=== PATIENT | male | born 1945 | race Caucasian/White ===

== ENCOUNTER 2017-08-03 15:05 | Observation (INO) | payer OTHER ==
[2017-08-03 15:12] VITALS: BMI 23.7
[2017-08-03 16:08] LABS: BASO # 0.02 K/mm3 (0.0-2.0); BASO % 0.3 % (0.0-3.0); EOS # 0.1 (0.0-0.7); EOS % 1.2 % (1.5-5.0); GRAN # 4.32 (1.4-6.5); GRAN % 63.8 % (50.0-68.0); LYMPH # 1.7 (1.2-3.4); LYMPH % 25.1 % (22.0-35.0); MEAN CELL VOLUME 86.4 fl (80.0-105.0); MEAN CORPUSCULAR HEMOGLOBIN 27.7 pg (25.0-35.0); MEAN CORPUSCULAR HGB CONC 32.1 g/dl (31.0-37.0); MONO # 0.7 (0.1-0.6); MONO % 9.6 % (1.0-6.0); RED CELL DISTRIBUTION WIDTH 14.2 % (11.5-14.5); WHITE BLOOD COUNT 6.8 10^3/ul (4.5-11.0)
[2017-08-03] MEDS ORDERED: Oxycodone/Acetaminophen 5/325 mg Tab PO STA (16:09)
[2017-08-03 16:11] LABS: ALB/GLOB RATIO 1.2 (1.1-1.8); ALKALINE PHOSPHATASE 44 U/L (38-126); ALT/SGPT 31 U/L (7-56); AST/SGOT 37 U/L (17-59); BILIRUBIN,TOTAL 0.5 mg/dL (0.2-1.3); BLOOD UREA NITROGEN 23 mg/dL (7-21); CALCIUM 9.1 mg/dL (8.4-10.5); CARBON DIOXIDE 23 mmol/L (21-33); CHLORIDE 105 mmol/L (98-107); GFR AFRICAN-AMERICAN > 60; GLUCOSE,RANDOM 121 mg/dL (70-110); LIPASE 273 U/L (23-300); POTASSIUM 4.5 mmol/L (3.6-5.0); SODIUM 140 mmol/L (132-148); TOTAL PROTEIN 7.9 g/dL (5.8-8.3)
[2017-08-03 16:23] LABS: TROPONIN I < 0.01 ng/mL
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
--- NOTE | 2017-08-03 19:43 | RAD ---
HISTORY: chest pain COMPARISON: None available. TECHNIQUE: Chest PA and lateral FINDINGS: LUNGS: No focal consolidation. Please note that chest x-ray has limited sensitivity for the detection of pulmonary masses. PLEURA: No significant pleural effusion identified. No definite pneumothorax . CARDIOVASCULAR: Median sternotomy wires with evidence of CABG. Heart size appears within normal limits. OSSEOUS STRUCTURES: No acute osseous abnormality identified. VISUALIZED UPPER ABDOMEN: Unremarkable. OTHER FINDINGS: None. IMPRESSION: No focal consolidation, significant pleural effusion, or definite pneumothorax identified.
[2017-08-04] MEDS ORDERED: Magnesium Hydroxide Susp 30 ml UD PO STA (02:00)
[2017-08-04 08:46] VITALS: BP 94/60; PULSE 82; RESP 20; TEMP 98.3; O2SAT 99
[2017-08-04] MEDS ORDERED: Pantoprazole 40 mg EC Tab PO SCH (10:00)
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
--- NOTE | 2017-08-04 22:11 | CARD ---
APPROVED REPORT EKG Measurement Heart [id number] <Conclusion> Normal sinus rhythm Normal ECG
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
== END 2017-08-04 14:55 | disposition home or self-care (01) ==
LOC: ED 15:05 → ERH 17:17 → MERGE 17:17 → 3RNO 18:32
PROVIDERS: ADMIT Internal Medicine; ATTEND Internal Medicine
DX: R07.9 Chest pain, unspecified (principal); Y04.0XXA Assault by unarmed brawl or fight, initial encounter; I25.10 Atherosclerotic heart disease of native coronary artery without angina pectoris; E78.00 Pure hypercholesterolemia, unspecified; I48.0 Paroxysmal atrial fibrillation; I48.2 Chronic atrial fibrillation; I50.9 Heart failure, unspecified; I11.0 Hypertensive heart disease with heart failure; E11.42 Type 2 diabetes mellitus with diabetic polyneuropathy; Z79.01 Long term (current) use of anticoagulants; Z79.82 Long term (current) use of aspirin; Z79.84 Long term (current) use of oral hypoglycemic drugs; Z95.1 Presence of aortocoronary bypass graft; Z86.718 Personal history of other venous thrombosis and embolism; Z87.891 Personal history of nicotine dependence
CPT/HCPCS: 36415; 71020; 80053; 82948; 83690; 84484; 85025; 93005; 99285; G0378

== ENCOUNTER 2018-02-11 11:36 | Inpatient (IN) | payer MEDICAID, OTHER ==
[2018-02-11] MEDS ORDERED: Sodium Chloride 0.9% 1,000 ML IV SCH (11:45)
--- NOTE | 2018-02-11 11:45 | ED PDOC ---
Arrival/HPI - General Time Seen by Provider: 02/11/18 11:38 Historian: Patient - History of Present Illness Narrative History of Present Illness (Text): 02/11/18 11:40 72 year old male, whose history includes CABG 2 years ago, paroxysmal afib, on eliquis, diabetes, and hypertension, presents to the Emergency department due unsteady gait and dizziness at approximately 09:30 this morning. As per EMS, patient seemed to have a left sided facial droop and left sided weakness; patient was also reportedly in rapid atrial fibrillation. As per friend, patient 's speech today is different than yesterday. Patient reports sore throat and back pain. Patient denies any fever, chills, chest pain, shortness of breath, nausea, vomiting, diarrhea, urinary symptoms, neck pain, headache, trauma/ injury or any other complaints. PMD: Dr. Milligan 02/11/18 13:01 Time/Duration: 1-3 hours Symptom Onset: Sudden Symptom Course: Unchanged Activities at Onset: Light Context: Walking Past Medical History - Provider Review Nursing Documentation Reviewed: Yes - Past History Past History: No Previous - Past Medical History Past Medical History: No Previous - Cardiac Hx Cardiac Disorders: Yes Hx Coronary Artery Disease: Yes Hx LA: Yes Hx Hyperlipemia: Yes Hx Hypertension: Yes Other/Comment: open heart surgery - Pulmonary Hx Respiratory Disorders: No - Neurological Hx Neurological Disorder: No - HEENT Hx HEENT Disorder: No - Renal Hx Renal Disorder: No - Endocrine/Metabolic Hx Endocrine Disorders: Yes Other/Comment: diabetic - Hematological/Oncological Hx Blood Disorders: No - Integumentary Hx Dermatological Disorder: No - Musculoskeletal/Rheumatological Hx Musculoskeletal Disorders: No - Gastrointestinal Hx Gastrointestinal Disorders: No - Genitourinary/Gynecological Hx Genitourinary Disorders: No - Psychiatric Hx Psychophysiologic Disorder: No Hx Substance Use: No - Surgical History Hx Open Heart Surgery: Yes - Anesthesia Hx Anesthesia: Yes Family/Social History - Physician Review Nursing Documentation Reviewed: Yes Family/Social History: Unknown Family HX Smoking Status: Never Smoked Hx Alcohol Use: No Hx Substance Use: No Allergies/Home Meds Allergies/Adverse Reactions: Allergies No Known Allergies Allergy (Verified 08/03/17 15:11) Home Medications: Home Meds Medication Instructions Recorded Confirmed Apixaban [Eliquis] 5 mg PO BID 08/03/17 08/03/17 Gabapentin [Neurontin] 300 mg PO QID 08/03/17 08/03/17 Metformin HCl [Glucophage] 1,000 mg PO BID 08/03/17 08/03/17 Metoprolol Succinate [Toprol XL] 25 mg PO BID 08/03/17 08/03/17 Pantoprazole [Protonix EC Tab] 40 mg PO DAILY 08/03/17 08/03/17 Repaglinide [Prandin] 2 mg PO TID 08/03/17 08/03/17 Simvastatin [Zocor] 20 mg PO DAILY 08/03/17 08/03/17 Review of Systems - Review of Systems Constitutional: absent: Fevers, Night Sweats Eyes: absent: Vision Changes ENT: absent: Rhinorrhea Respiratory: absent: SOB, Cough, Sputum, Wheezing Cardiovascular: absent: Chest Pain, Palpitations, Edema, Calf Pain, DESIR, Orthopnea, Syncope Gastrointestinal: absent: Abdominal Pain, Constipation, Diarrhea, Nausea Genitourinary Male: absent: Dysuria Musculoskeletal: absent: Back Pain, Neck Pain Skin: absent: Rash Neurological: Dizziness, Focal Weakness (left sided), Gait Changes, Speech Changes, Facial Droop (left sided). absent: Headache Endocrine: absent: Diaphoresis Physical Exam Vital Signs Reviewed: Yes Vital Signs Temp Pulse Resp BP Pulse Ox 02/11/18 19:53 90 16 127/71 99 02/11/18 17:53 88 16 112/72 98 02/11/18 16:51 98 H 16 110/82 99 02/11/18 14:00 106 H 20 109/66 97 02/11/18 13:00 109 H 20 100/61 98 02/11/18 12:15 106 H 20 110/51 L 99 02/11/18 11:45 101.5 F H 107 H 20 113/64 97 Temperature: Febrile Blood Pressure: Normal Pulse: Tachycardic Respiratory Rate: Normal Appearance: Positive for: Well-Appearing, Non-Toxic, Comfortable Pain Distress: None Mental Status: Positive for: Confused. No: Alert and Oriented X 3 (Alert and oriented x2 (patient is disoriented to year)) - Systems Exam Head: Present: Atraumatic, Normocephalic Pupils: Present: PERRL Extroacular Muscles: Present: EOMI Conjunctiva: Present: Normal Mouth: Present: Moist Mucous Membranes Pharnyx: Present: ERYTHEMA. No: EXUDATE Neck: Present: Normal Range of Motion Respiratory/Chest: Present: Clear to Auscultation, Good Air Exchange. No: Respiratory Distress, Accessory Muscle Use Cardiovascular: Present: Normal S1, S2, Tachycardic. No: Murmurs, Irregular Rhythm Abdomen: No: Tenderness, Distention, Peritoneal Signs Back: Present: Normal Inspection, Midline Tenderness (midline thoracic pain). No: CVA Tenderness Upper Extremity: Present: Normal Inspection. No: Cyanosis, Edema Lower Extremity: Present: Other (4/5 strength). No: Edema Neurological: Present: GCS=15, Speech Normal, Other (left sided facial droop on left cheek) Skin: Present: Warm, Dry, Normal Color. No: Rashes Psychiatric: Present: Alert, Oriented x 3, Normal Insight, Normal Concentration Medical Decision Making ED Course and Treatment: 02/11/18 11:40 Impression: 72 year old male presents to the Emergency department complaining of dizziness and unsteady gait. Patient is also found to have left sided facial droop. Code stroke immediately called Differential Diagnosis included but are not limited to: CVA vs. spinal abscess vs. strep throat Plan: -- CTA head/neck code stroke, CT scan of the head -- Chest xray -- EKG -- Labs, blood cultures -- rapid strep -- Sodium Chloride IV fluids -- Reassess and disposition Prior Visits: Notes and results from previous visits were reviewed. Patient was last seen in the emergency department on 08/03/17, was diagnosed with Chest pain with high risk of acute coronary syndrome, and was admitted to the hospital. Progress Notes: 02/11/18 11:40 Dr. Knox at bedside. 02/11/18 12:01 Patient not a tPA candidate due to Eliquis use. CT head and CTA negative. 02/11/18 12:16 Dr. Knox has completed his evaluation of the patient; patient is not a tPA candidate. Concerned due to 4/5 weakness b/l to lower extremities. Dr. Knox will follow patient once he is admitted to Dr. Milligan. 02/11/18 12:32 Patient febrile and tachycardic. AAOx2 only. Thought to be some component of infection and tia vs cva. Need to evaluate spine due to complaint of back pain. MRI to be ordered by neurologist. 02/11/2018 12:35:11 CT Angiography of the Brain and Neck FINDINGS: INTERNAL CEREBRAL ARTERIES: Unremarkable. The skull base, petrous, cavernous and supraclinoid segments are bilaterally widely patent. ANTERIOR CEREBRAL ARTERIES: Unremarkable. A1 and A2 segments are widely patent. Smaller distal branches unremarkable, as visualized. MIDDLE CEREBRAL ARTERIES: Unremarkable. M1 and M2 segments are widely patent. Perisylvian branches grossly symmetric. POSTERIOR CIRCULATION: Basilar Artery: Unremarkable. Distal Vertebral Arteries: Left dominant vertebrobasilar circulation is appreciate with widely patent bilateral distal vertebral arteries. Posterior Cerebral Arteries: Unremarkable. Posterior Inferior Cerebellar Arteries: Unremarkable. NECK CTA: Common Carotid arteries: The bilateral common carotid appear widely patent from their origins to their bifurcations with no significant stenosis appreciated. No evidence to suggest common carotid artery dissection. Internal Carotid arteries: No significant stenosis is appreciated throughout the cervical internal carotid artery segments bilaterally and there is no evidence of dissection either. External Carotid arteries: Appear unremarkable bilaterally. Vertebral arteries: The low left vertebral artery is widely patent from origin to junction with the basilar artery. There is apparent 50-60 percent stenosis of the origin of the right vertebral artery which is otherwise widely patent. ANEURYSM/ VASCULAR MALFORMATIONS: None. OTHER FINDINGS: Incidental views through the bilateral pulmonary apices is unremarkable as well as the thoracic inlet. IMPRESSION: Unremarkable CT Angiography of the Brain. Moderate proximal right vertebral artery stenosis with the left vertebral artery widely patent. No arteriovascular malformation or aneurysm identified. Neck CTA otherwise unremarkable. 02/11/2018 12:16:08 CT HEAD WITHOUT CONTRAST FINDINGS: HEMORRHAGE: No intracranial hemorrhage. BRAIN: Good corticomedullary differentiation is seen. Diffuse expansion of the ventriculosulcal and cisternal spaces is appreciated with white matter lucency compatible with diffuse cerebral atrophy and chronic microangiopathy. No suspicious extra-axial fluid collection is identified and the midline brain anatomy appears grossly nonfocal as imaged. There is no mass effect throughout. VENTRICLES: Unremarkable. No hydrocephalus. CALVARIUM: Unremarkable. PARANASAL SINUSES: Incidental multifocal bilateral ethmoid and [id number]-left maxillary sinus changes noted. MASTOID AIR CELLS: Unremarkable as visualized. No inflammatory changes. OTHER FINDINGS: None. IMPRESSION: Age-related degenerative changes are identified without definite acute intracranial CT findings. Consider follow-up CT or MRI if clinically warranted. 02/11/2018 12:26:42 Chest Xray FINDINGS: LUNGS: No active pulmonary disease. PLEURA: No significant pleural effusion identified, no pneumothorax apparent. CARDIOVASCULAR: Normal. OSSEOUS STRUCTURES: Sternal wires VISUALIZED UPPER ABDOMEN: Normal. OTHER FINDINGS: None. IMPRESSION: No active disease. 02/11/18 12:56 Lactate elevated to 5. Febrile and tachycardic. 30cc/kg fluid and antibiotics , blood and urine cx ordered. Patient complaining of sore throat and back pain. ?strep throat vs spinal abscess vs viral process. Antibiotics ordered. Clarified with family due to patient being confused about date and they report that he has had increasing episodes of confusion recently. Neck supple 02/11/18 14:03 Spears [address] as patient unable to urinate. >350cc urine output consistent with urinary retention 02/11/2018 15:01:06 MRI BRAIN WITHOUT CONTRAST FINDINGS: HEMORRHAGE: None DWI: No evidence of an acute or early subacute infarction. BRAIN PARENCHYMA: No mass effect or edema. No atrophy or chronic microvascular ischemic changes. VENTRICLES: Unremarkable. No hydrocephalus. CRANIUM: Unremarkable. ORBITS: Grossly unremarkable. PARANASAL SINUSES/MASTOIDS: Clear VASCULAR SYSTEM: Skull base flow voids intact. OTHER FINDINGS: None. IMPRESSION: Unremarkable non contrast enhanced MRI of the brain. 02/11/18 18:34 MRI thoracic 1. No significant canal or foraminal stenosis. 2. No evidence of abnormal enhancing cord mass or lesion. MRI lumbar FINDINGS: Vertebrae: Unremarkable. No acute fracture. Spinal cord: Unremarkable. Normal signal. No abnormal enhancement. Soft tissues: Unremarkable. DISCS/SPINAL CANAL/NEURAL FORAMINA: L1-L2: Unremarkable. No significant disc disease. No stenosis. L2-L3: Unremarkable. No significant disc disease. No stenosis. L3-L4: At L3-L4, disc bulge, ligamentum flavum infolding, and facet arthropathy results in mild canal mild bilateral foraminal stenosis. L4-L5: At L4-L5, disc bulge, ligamentum flavum infolding, and facet arthropathy results in moderate canal and mild bilateral foraminal stenosis. L5-S1: Heterogeneous T1 and T2 hyperintensity in the anterior epidural space along L5 and S1 with some enhancement is nonspecific and could reflect mild inflammation of fat and/ or venous plexus engorgement. Infection or hemorrhage is considered less likely. These findings, in combination with disc bulge, ligamentum flavum infolding, and facet arthropathy results in moderate canal and no foraminal stenosis. Clinical correlation recommended. IMPRESSION: Heterogeneous T1 and T2 hyperintensity in the anterior epidural space along L5 and S1 with some enhancement is nonspecific and could reflect mild inflammation of fat and/or venous plexus engorgement. Infection or hemorrhage is considered less likely. These findings, in combination with disc bulge, ligamentum flavum infolding, and facet arthropathy results in moderate canal and no foraminal stenosis. Clinical correlation recommended. 02/11/18 21:58 Patient now complaining of cough. Source may be pneumonia. - Lab Interpretations Lab Results: 02/11/18 12:00 02/11/18 12:00 Lab Results 02/11/18 16:50: pO2 48, VBG pH 7.31 L, VBG pCO2 48.0, VBG HCO3 24.2, VBG Total CO2 25.7, VBG O2 Sat (Calc) 87.5 H, VBG Base Excess -2.5 L, VBG Potassium 4.5, Glucose 176 H, Lactate 1.9, FiO2 21.0, Sodium 138.0, Chloride 110.0 H, Venous Blood Potassium 4.5 02/11/18 13:59: Urine Color Yellow, Urine Appearance Clear, Urine pH 6.0, Ur Specific [place] 1.010, Urine Protein Negative, Urine Glucose (UA) 500 H, Urine Ketones Negative, Urine Blood Trace-intact H, Urine Nitrate Negative, Urine Bilirubin Negative, Urine Urobilinogen 0.2, Ur Leukocyte Esterase Negative, Urine RBC 1 - 3, Urine WBC 0 - 2, Ur Epithelial Cells None, Urine Bacteria Few 02/11/18 12:30: Blood Type Confirm B POSITIVE 02/11/18 12:20: Grp A Beta Strep Ag Negative 02/11/18 12:10: pO2 46, VBG pH 7.36, VBG pCO2 36.0 L, VBG HCO3 20.3 L, VBG Total CO2 21.4 L, VBG O2 Sat (Calc) 87.5 H, VBG Base Excess -4.5 L, VBG Potassium 4.1, Glucose 316 H, Lactate 5.4 H*, FiO2 21.0, Sodium 130.0 L, Chloride 99.0, Venous Blood Potassium 4.1 02/11/18 12:00: Blood Type B POSITIVE, Antibody Screen Negative, BBK History Checked No verified bt 02/11/18 12:00: Hemoglobin A1c 7.4 H 02/11/18 12:00: Sodium 132, Potassium 4.3, Chloride 97 L, Carbon Dioxide 18 L, Anion Gap 22 H, BUN 23 H, Creatinine 1.3, Est GFR ( Amer) > 60, Est GFR ( Non-Af Amer) 54, Random Glucose 283 H, Calcium 8.0 L, Total Bilirubin 0.5, AST 24, ALT 24, Alkaline Phosphatase 43, Troponin I < 0.01, Total Protein 6.6, Albumin 3.6, Globulin 3.0, Albumin/Globulin Ratio 1.2, Triglycerides 143, Cholesterol 135, LDL Cholesterol Direct 67, HDL Cholesterol 43 02/11/18 12:00: PT 14.8 H, INR 1.28 H, APTT 29.1 02/11/18 12:00: WBC 8.3 D, RBC 4.02, Hgb 10.8 L, Hct 33.1 L, MCV 82.3 D, MCH 26.9, MCHC 32.6, RDW 15.1 H, Plt Count 234, MPV 9.6, Gran % 84.2 H, Lymph % ( Auto) 8.8 L, [place] % (Auto) 6.0, Eos % (Auto) 0.5 L, Baso % (Auto) 0.5, Gran # 6.96 H, Lymph # (Auto) 0.7 L, [place] # (Auto) 0.5, Eos # (Auto) 0.0, Baso # (Auto ) 0.04 - RAD Interpretation Radiology Orders: 02/11/18 11:39 CTA HEAD/NECK CODE STROKE [CT] Stat HEAD W/O (CODE STROKE) [CT] Stat CHEST PORTABLE [RAD] Stat 02/11/18 12:36 BRAIN WITHOUT CONTRAST [MRI] Stat 02/11/18 14:05 SPINAL LUMBAR W/WO LORI [MRI] Stat SPINAL THORACIC W/WO LORI [MRI] Stat - EKG Interpretation EKG Interpretation (Text): 02/11/18 12:08 EKG: Ordered, reviewed, and independently interpreted the EKG. Rate : 108 BPM Rhythm : Sinus tachycardia Interpretation : No ST-segment elevations or depressions, no T-wave inversions, normal intervals. Interpreted by ED Physician: Yes Type: 12 lead EKG - Medication Orders Current Medication Orders: Acetaminophen (Tylenol 325mg Tab) 650 mg PO Q6H PRN PRN Reason: Fever >100.4 F Atorvastatin Calcium (Lipitor) 10 mg PO DIN SKYLER Gabapentin (Neurontin) 300 mg PO QID SKYLER PRN Reason: Protocol Sodium Chloride (Sodium Chloride 0.9%) 1,000 mls @ 100 mls/hr IV .Q10H SKYLER Doxycycline Hyclate 100 mg/ (Sodium Chloride) 100 mls @ 100 mls/hr IVPB Q12 SKYLER PRN Reason: Protocol Insulin Human Regular (Humulin R Low) 0 units SC ACHS SKYLER PRN Reason: Protocol Levalbuterol HCl (Xopenex) 0.63 mg IH [id number] PRN PRN Reason: Shortness of Breath Metoprolol Succinate (Toprol Xl) 25 mg PO BID SKYLER Pantoprazole Sodium (Protonix Ec Tab) 40 mg PO DAILY SKYLER Discontinued Medications Acetaminophen (Tylenol 650 Mg Supp) 650 mg RC STAT STA Stop: 02/11/18 12:28 Last Admin: 02/11/18 12:51 Dose: 650 mg MAR Pain/Vitals Document 02/11/18 12:51 MELISSA (Rec: 02/11/18 12:51 [email or web address] [id number]) Pain Reassessment Is This A Pain ReAssessment? No Sleep Is patient sleeping during reassessment? No Presence of Pain Presence of Pain No Aspirin (Aspirin Supp) 300 mg RC STAT STA Stop: 02/11/18 12:39 Last Admin: 02/11/18 12:51 Dose: 300 mg MAR Pain/Vitals Document 02/11/18 12:51 MELISSA (Rec: 02/11/18 12:51 [email or web address] [id number]) Pain Reassessment Is This A Pain ReAssessment? No Sleep Is patient sleeping during reassessment? No Presence of Pain Presence of Pain No Sodium Chloride (Sodium Chloride 0.9%) 1,000 mls @ 999 mls/hr IV .Q1H1M STA Stop: 02/11/18 13:27 Last Admin: 02/11/18 12:50 Dose: 999 mls/hr eMAR Start Stop Document 02/11/18 12:50 MELISSA (Rec: 02/11/18 12:50 [email or web address] [id number]) Intravenous Solution Start Date 02/11/18 Start Time 12:20 End Date 02/11/18 End time 13:20 Total Infusion Time 60 Sodium Chloride 2,500 ml/ IV (SUPPLIES) 2,500 mls @ 4,849.8 mls/hr IV ONCE ONE PRN Reason: 60 ML/KG/HR Stop: 02/11/18 12:50 Last Admin: 02/11/18 12:49 Dose: Sodium Chloride (Sodium Chloride 0.9%) 2,500 mls @ 4,849.138 mls/hr IV .Q31M ONE Stop: 02/11/18 13:30 Last Admin: 02/11/18 13:00 Dose: 4,849.138 mls/hr eMAR Start Stop Document 02/11/18 13:00 SZA (Rec: 02/11/18 13:00 [email or web address] [id number]) Intravenous Solution Start Date 02/11/18 Start Time 13:00 End Date 02/11/18 End time 13:30 Total Infusion Time 30 Ceftriaxone Sodium (Rocephin 2 Gm Ivpb) 2 gm in 100 mls @ 100 mls/hr IVPB STAT STA PRN Reason: Protocol Stop: 02/11/18 13:50 Last Admin: 02/11/18 12:59 Dose: 100 mls/hr eMAR Start Stop Document 02/11/18 12:59 SZA (Rec: 02/11/18 12:59 SZA [id number]) Intravenous Solution Start Date 02/11/18 Start Time 12:59 End Date 02/11/18 End time 13:30 Total Infusion Time 31 Vancomycin HCl (Vancomycin 1gm) 1 gm in 250 mls @ 167 mls/hr IVPB STAT STA PRN Reason: Protocol Stop: 02/11/18 14:20 Last Admin: 02/11/18 13:25 Dose: 167 mls/hr eMAR Start Stop Document 02/11/18 13:25 SZA (Rec: 02/11/18 13:26 [email or web address] [id number]) Intravenous Solution Start Date 02/11/18 Start Time 13:25 End Date 02/11/18 End time 15:00 Total Infusion Time 95 NIHSS Scale ([place]) Time Performed: 11:56 - How Severe is the [place] Baseline Level of Consciousness: 0=Alert LOC to Questions: 0=Both comments correct LOC to commands: 0=Obeys both correctly Best Gaze: 0=Normal Visual: 0=No visual loss Facial: 1=Minor asymmetry Motor Arm - Left: 0=No drift Motor Arm - Right: 0=No drift Motor Leg - Left: 0=No drift Motor Leg - Right: 0=No drift Limb Ataxia: 0=Absent Sensory: 0=Normal Best Language: 0=No aphasia Dysarthia: 0=Normal articulation Extinction & Inattention (Neglect): 0=Normal, no object Score: 1 Risk Level: Minor Stroke Risk rTPA Inclusion/Exclusion - Refusal of Treatment Patient Refused Treatment: No - Inclusion Criteria for Altepase Patient is 18 years or Older: No The Clinical Diagnosis of Ischemic Stroke That is Causing a Potentially Disabling Neurological Deficit: No Time of Onset is Well Established to be Less Than 270 Minute Before Treatment Would Begin: Yes Risk/Benefit Discussed With Patient/Family Member Present: No - Scribe Statement The provider has reviewed the documentation as recorded by the Scribwendi Iniguez All medical record entries made by the Garretibe were at my direction and personally dictated by me. I have reviewed the chart and agree that the record accurately reflects my personal performance of the history, physical exam, medical decision making, and the department course for this patient. I have also personally directed, reviewed, and agree with the discharge instructions and disposition. Disposition/Present on Arrival - Present on Arrival Any Indicators Present on Arrival: No History of DVT/PE: No History of Uncontrolled Diabetes: No Urinary Catheter: No History Surgical Site Infection Following: None - Disposition Have Diagnosis and Disposition been Completed?: Yes Diagnosis: Urinary retention, Weakness, Fever, Gait disturbance, Cough Disposition: HOSPITALIZED Disposition Time: 18:38 Patient Plan: Admission Patient Problems: Current Active Problems Problem Status Onset Cough Acute Fever Acute Gait difficulty Acute Urinary retention Acute Weakness Acute Condition: FAIR
--- NOTE | 2018-02-11 12:17 | CT ---
PROCEDURE: CT HEAD WITHOUT CONTRAST. HISTORY: Code Stroke COMPARISON: None available. TECHNIQUE: Axial computed tomography images were obtained through the head/brain without intravenous contrast. Radiation dose: Total exam DLP = 906.37 mGy-cm. This CT exam was performed using one or more of the following dose reduction techniques: Automated exposure control, adjustment of the mA and/or kV according to patient size, and/or use of iterative reconstruction technique. FINDINGS: HEMORRHAGE: No intracranial hemorrhage. BRAIN: Good corticomedullary differentiation is seen. Diffuse expansion of the ventriculosulcal and cisternal spaces is appreciated with white matter lucency compatible with diffuse cerebral atrophy and chronic microangiopathy. No suspicious extra-axial fluid collection is identified and the midline brain anatomy appears grossly nonfocal as imaged. There is no mass effect throughout. VENTRICLES: Unremarkable. No hydrocephalus. CALVARIUM: Unremarkable. PARANASAL SINUSES: Incidental multifocal bilateral ethmoid and dbmcn-[id number]-[id number]-left maxillary sinus changes noted. MASTOID AIR CELLS: Unremarkable as visualized. No inflammatory changes. OTHER FINDINGS: None. IMPRESSION: Age-related degenerative changes are identified without definite acute intracranial CT findings. Consider follow-up CT or MRI if clinically warranted. Discussed with Dr. Christiano velasco 02/11/2018 12:09 p.m..
[2018-02-11 12:20] LABS: BASO # 0.04 K/mm3 (0.0-2.0); BASO % 0.5 % (0.0-3.0); EOS % 0.5 % (1.5-5.0); GRAN # 6.96 (1.4-6.5); GRAN % 84.2 % (50.0-68.0); HEMOGLOBIN 10.8 g/dL (14.0-18.0); LYMPH # 0.7 (1.2-3.4); LYMPH % 8.8 % (22.0-35.0); MEAN CELL VOLUME 82.3 fl (80.0-105.0); MEAN CORPUSCULAR HEMOGLOBIN 26.9 pg (25.0-35.0); MEAN CORPUSCULAR HGB CONC 32.6 g/dl (31.0-37.0); MEAN PLATELET VOLUME 9.6 fl (7.0-11.0); MONO # 0.5 (0.1-0.6); RBC 4.02 10^6/uL (3.5-6.1); RED CELL DISTRIBUTION WIDTH 15.1 % (11.5-14.5); WHITE BLOOD COUNT 8.3 10^3/ul (4.5-11.0)
[2018-02-11] MEDS ORDERED: Sodium Chloride 0.9% 1,000 ML IV STA (12:27)
--- NOTE | 2018-02-11 12:27 | CP.PCM.CON ---
History of Present Illness - History of Present Illness History of Present Illness: Mr. Eckert is a 72-year-old man with a past medical history of CAD s/p CABG, HTN, who states for the last two days he has been having intermittent back pain and difficulty with ambulation. However, today, he was driving and started to feel dizzy. He exited the vehicle and was noted by his friend to have a slow/ shuffling gait. EMS was called and they noted a left facial droop. In the ED, the facial droop was not present and he did not have significant findings on exam except for slight bilateral lower extremity generalized weakness. NIHSS was 0. CT scan of the head and CTA of the head/neck were negative for acute findings. Review of Systems - Review of Systems All systems: reviewed and no additional remarkable complaints except Past Patient History - Infectious Disease Hx of Infectious Diseases: None - Past Social History Smoking Status: Never Smoked - CARDIAC Hx Cardiac Disorders: Yes Hx Heart Attack: Yes Hx Hypertension: Yes Other/Comment: open heart surgery - PULMONARY Hx Respiratory Disorders: No - NEUROLOGICAL Hx Neurological Disorder: No - HEENT Hx HEENT Problems: No - RENAL Hx Chronic Kidney Disease: No - ENDOCRINE/METABOLIC Hx Endocrine Disorders: Yes Other/Comment: diabetic - HEMATOLOGICAL/ONCOLOGICAL Hx Blood Disorders: No - INTEGUMENTARY Hx Dermatological Problems: No - MUSCULOSKELETAL/RHEUMATOLOGICAL Hx Musculoskeletal Disorders: No - GASTROINTESTINAL Hx Gastrointestinal Disorders: No - GENITOURINARY/GYNECOLOGICAL Hx Genitourinary Disorders: No - PSYCHIATRIC Hx Psychophysiologic Disorder: No Hx Substance Use: No - SURGICAL HISTORY Hx Open Heart Surgery: Yes - ANESTHESIA Hx Anesthesia: Yes Meds Allergies/Adverse Reactions: Allergies Allergy/AdvReac Type Severity Reaction Status Date / Time No Known Allergies Allergy Verified 08/03/17 15:11 - Medications Medications: Current Medications Sodium Chloride (Sodium Chloride 0.9%) 1,000 mls @ 100 mls/hr IV .Q10H SKYLER Physical Exam - Neurological Exam Neurological exam: Abnormal Gait, Alert, CN II-XII Intact, Oriented x3, Reflexes Normal Additional comments: Bilateral lower extremity 4/5 strength proximally and distally. Otherwise normal exam. Plantar responses are downgoing. NIHSS = 0. Assessment & Plan (1) Gait difficulty Assessment and Plan: Could be due to spinal cord disease or radiculopathy. Unlikely to be of central or cerebellar origin. However, with his history a TIA or stroke work- up is warranted. I recommend the followin. MRI brain without contrast and MRI of the thoracic/lumbar spine without contrast 2. Telemetry 3. Aspirin 81 mg daily and Plavix 75 mg daily for one month, then continue only Plavix 75 mg daily 4. Echocardiogram 5. PT/OT eval and treatment 6. DVT Px 7. Check Lipid panel, HbA1c, B12, folate, Vitamin D levels 8. Statin to keep LDL < 70 9. Case management consult Thank you. Status: Acute Priority: High
[2018-02-11 12:28] LABS: ALB/GLOB RATIO 1.2 (1.1-1.8); ALBUMIN 3.6 g/dL (3.0-4.8); ALT/SGPT 24 U/L (7-56); AST/SGOT 24 U/L (17-59); BLOOD UREA NITROGEN 23 mg/dL (7-21); GFR AFRICAN-AMERICAN > 60; GFR NON-AFRICAN AMERICAN 54; HDL CHOLESTEROL 43 mg/dL (29-60)
--- NOTE | 2018-02-11 12:28 | RAD ---
HISTORY: Code Stroke COMPARISON: 08/03/2017 FINDINGS: LUNGS: No active pulmonary disease. PLEURA: No significant pleural effusion identified, no pneumothorax apparent. CARDIOVASCULAR: Normal. OSSEOUS STRUCTURES: Sternal wires VISUALIZED UPPER ABDOMEN: Normal. OTHER FINDINGS: None. IMPRESSION: No active disease.
--- NOTE | 2018-02-11 12:36 | CT ---
PROCEDURE: CT Angiography of the Brain and Neck. HISTORY: stroke COMPARISON: None available. TECHNIQUE: CT angiography of the intracranial and neck arteries was performed. Coronal and sagittal maximum intensity projection reformatted images were generated. Contrast Dose: Omnipaque 350, 150 cc Radiation dose:Total exam DLP = 552.94 mGy-cm. This CT exam was performed using one or more of the following dose reduction techniques: Automated exposure control, adjustment of the mA and/or kV according to patient size, and/or use of iterative reconstruction technique. FINDINGS: INTERNAL CEREBRAL ARTERIES: Unremarkable. The skull base, petrous, cavernous and supraclinoid segments are bilaterally widely patent. ANTERIOR CEREBRAL ARTERIES: Unremarkable. A1 and A2 segments are widely patent. Smaller distal branches unremarkable, as visualized. MIDDLE CEREBRAL ARTERIES: Unremarkable. M1 and M2 segments are widely patent. Perisylvian branches grossly symmetric. POSTERIOR CIRCULATION: Basilar Artery: Unremarkable. Distal Vertebral Arteries: Left dominant vertebrobasilar circulation is appreciate with widely patent bilateral distal vertebral arteries. Posterior Cerebral Arteries: Unremarkable. Posterior Inferior Cerebellar Arteries: Unremarkable. NECK CTA: Common Carotid arteries: The bilateral common carotid appear widely patent from their origins to their bifurcations with no significant stenosis appreciated. No evidence to suggest common carotid artery dissection. Internal Carotid arteries: No significant stenosis is appreciated throughout the cervical internal carotid artery segments bilaterally and there is no evidence of dissection either. External Carotid arteries: Appear unremarkable bilaterally. Vertebral arteries: The low left vertebral artery is widely patent from origin to junction with the basilar artery. There is apparent 50-60 percent stenosis of the origin of the right vertebral artery which is otherwise widely patent. ANEURYSM/ VASCULAR MALFORMATIONS: None. OTHER FINDINGS: Incidental views through the bilateral pulmonary apices is unremarkable as well as the thoracic inlet. IMPRESSION: Unremarkable CT Angiography of the Brain. Moderate proximal right vertebral artery stenosis with the left vertebral artery widely patent. No arteriovascular malformation or aneurysm identified. Neck CTA otherwise unremarkable.
[2018-02-11 12:38] LABS: LDL CHOLESTEROL 67 mg/dL (0-129)
[2018-02-11 12:40] LABS: VENOUS BLOOD GAS BASE EXCESS -4.5 mmol/L (0.0-2.0); VENOUS BLOOD GAS PO2 46 mm/Hg (30-55); VENOUS BLOOD PH 7.36 (7.32-7.43)
[2018-02-11 12:41] LABS: TROPONIN I < 0.01 ng/mL
[2018-02-11 12:44] LABS: INR 1.28 (0.93-1.08); PARTIAL THROMBOPLASTIN TIME 29.1 Seconds (25.1-36.5); PROTHROMBIN TIME 14.8 SECONDS (9.4-12.5)
[2018-02-11] MEDS ORDERED: cefTRIAXone 2 GM IN NS 2 GM/100 ML BAG IVPB STA (12:51)
[2018-02-11] MEDS ORDERED: Vancomycin 1gm in NS 250ml 1 GM/250 ML BAG IVPB STA ×2 (12:51→23:06)
[2018-02-11] MEDS ORDERED: Sodium Chloride 0.9% 2,500 ML IV ONE (13:00)
[2018-02-11 14:07] LABS: URINE BILIRUBIN NEGATIVE (NEGATIVE); URINE BLOOD TRACE-INTACT (NEGATIVE); URINE GLUCOSE (UA) 500 mg/dL (NEGATIVE); URINE LEUKOCYTE ESTERASE NEGATIVE Leu/uL (NEGATIVE); URINE PROTEIN NEGATIVE mg/dL (<30 mg/dL); URINE UROBILINOGEN 0.2 E.U./dL (<1 E.U./dL)
[2018-02-11 14:09] LABS: URINE APPEARANCE CLEAR (CLEAR); URINE COLOR YELLOW (YELLOW)
[2018-02-11 14:11] LABS: URINE BACTERIA FEW (NEG); URINE WBC 0 - 2 /hpf (0-6)
--- NOTE | 2018-02-11 15:02 | MRI ---
PROCEDURE: MRI BRAIN WITHOUT CONTRAST HISTORY: altered, facial droop, weakness now resolved COMPARISON: None. TECHNIQUE: Multiplanar, multisequence MR images of the brain were obtained without intravenous contrast enhancement. FINDINGS: HEMORRHAGE: None DWI: No evidence of an acute or early subacute infarction. BRAIN PARENCHYMA: No mass effect or edema. No atrophy or chronic microvascular ischemic changes. VENTRICLES: Unremarkable. No hydrocephalus. CRANIUM: Unremarkable. ORBITS: Grossly unremarkable. PARANASAL SINUSES/MASTOIDS: Clear VASCULAR SYSTEM: Skull base flow voids intact. OTHER FINDINGS: None. IMPRESSION: Unremarkable non contrast enhanced MRI of the brain.
[2018-02-11] MEDS ORDERED: Gadodiamide 287 MG/ML VIAL (15ML) IV ONE (15:32)
[2018-02-11 17:03] LABS: VENOUS BLOOD GAS BASE EXCESS -2.5 mmol/L (0.0-2.0); VENOUS BLOOD GAS PO2 48 mm/Hg (30-55); VENOUS BLOOD PH 7.31 (7.32-7.43)
--- NOTE | 2018-02-11 20:36 | PCM.SEPTIC ---
Sepsis Progress Note - Reassessment Type Date of Evaluation: 02/11/18 Time of Evaluation: 19:00 Reassessment Type: Non-invasive reassessment - Non Invasive Reassessment Were the most recent vital sign reviewed: Yes Vital Sign (Latest): Temp Pulse Resp BP Pulse Ox 99.2 F 90 16 127/71 99 02/11/18 20:04 02/11/18 20:04 02/11/18 20:04 02/11/18 20:04 02/11/18 20:04 Cardiovascular: Yes: Regular Rate, Rhythm Respiratory: Yes: Normal Breath Sounds Capillary Refill: Normal (Less than 2 sec) Skin: Normal Color
[2018-02-11] MEDS: Metoprolol Succinate 25 mg XL Tab PO SCH (22:29)
[2018-02-11] MEDS ORDERED: Cefepime IV 2 gm in NS 2 GM/100 ML BAG IVPB SCH (23:15)
[2018-02-12] MEDS: Insulin Reg-LOW-Coverage SC SCH ×5 (00:25→23:16)
--- NOTE | 2018-02-12 00:30 | CARD ---
APPROVED REPORT EKG Measurement Heart [id number] <Conclusion> Sinus tachycardia Nonspecific ST and T wave abnormality Abnormal ECG
[2018-02-12] MEDS ORDERED: Sodium Chloride 0.9% 1,000 ML IV SCH ×3 (01:15→12:30)
[2018-02-12 08:11] LABS: BLOOD UREA NITROGEN 18 mg/dL (7-21); CALCIUM 7.9 mg/dL (8.4-10.5); GFR AFRICAN-AMERICAN > 60; GFR NON-AFRICAN AMERICAN 60; HDL CHOLESTEROL 38 mg/dL (29-60)
[2018-02-12 08:19] LABS: LDL CHOLESTEROL 66 mg/dL (0-129)
--- NOTE | 2018-02-12 08:45 | CT ---
PROCEDURE: CT Chest without contrast HISTORY: fever COMPARISON: None. TECHNIQUE: Contiguous axial images were obtained through the chest without intravenous contrast enhancement. Sagittal and coronal reconstructions were performed. Radiation dose (DLP): 511 mGy-cm. This CT exam was performed using one or more of the following dose reduction techniques: Automated exposure control, adjustment of the mA and/or kV according to patient size, and/or use of iterative reconstruction technique. FINDINGS: LUNGS: Clear lungs. Visualized airway clear. MEDIASTINUM: Unremarkable thoracic aorta. No aneurysm. Normal sized heart. Main pulmonary artery unremarkable. No vascular congestion. No lymphadenopathy. Coronary artery calcification PLEURA: No pleural fluid. No pneumothorax. BONES: Sternal wires UPPER ABDOMEN: Grossly unremarkable. OTHER FINDINGS: None. IMPRESSION: No evidence of pneumonia. No acute findings
[2018-02-12] MEDS ORDERED: Vancomycin 1gm in NS 250ml 1 GM/250 ML BAG IVPB SCH (09:30)
--- NOTE | 2018-02-12 09:30 | MRI ---
PROCEDURE: MR LUMBAR SPINE WITH AND WITHOUT CONTRAST HISTORY: weakness, fever, back pain, retention COMPARISON: None available. TECHNIQUE: Multiecho multiplanar sequences were performed through the lumbar spine with and without the use of intravenous contrast. 15 cc of Omniscan FINDINGS: Normal lumbar lordosis. Vertebral body heights are preserved. Marrow signal unremarkable. Conus medullaris unremarkable at the level of T12 Paraspinal soft tissues are unremarkable. No abnormal enhancement. T12-L1: No disc herniation, spinal canal stenosis or neural foraminal narrowing. L1-2: No disc herniation, spinal canal stenosis or neural foraminal narrowing. L2-3: No disc herniation, spinal canal stenosis or neural foraminal narrowing. L3-4: No disc herniation, spinal canal stenosis or neural foraminal narrowing. L4-5: No disc herniation, spinal canal stenosis or neural foraminal narrowing. L5-S1: No disc herniation, spinal canal stenosis or neural foraminal narrowing. OTHER FINDINGS: There is mild facet degeneration throughout the lumbar spine. There is desiccation of the disc material but no loss of disc height or significant disc bulge IMPRESSION: No evidence of disc herniation or spinal stenosis. No enhancing abnormality
--- NOTE | 2018-02-12 09:32 | MRI ---
PROCEDURE: MR THORACIC SPINE WITH AND WITHOUT CONTRAST HISTORY: weakness, fever, back pain, retention COMPARISON: None available. TECHNIQUE: Multiecho multiplanar sequences were performed through the thoracic spine with and without the use of intravenous contrast. 15 cc of Omniscan FINDINGS: ALIGNMENT: Normal thoracic spinal alignment. Normal thoracic kyphosis. VERTEBRA: Vertebral body height are preserved. MARROW: Marrow signal unremarkable. PARASPINAL SOFT TISSUES: Unremarkable. CORD: Unremarkable thoracic cord. No volume loss, signal abnormality or syrinx. DISCS: No disc herniation, spinal canal stenosis, or neuroforaminal narrowing. ENHANCEMENT: No abnormal enhancement. OTHER FINDINGS: None. IMPRESSION: Unremarkable pre and post contrast enhanced MRI of the thoracic spine
[2018-02-12] MEDS: Metoprolol Succinate 25 mg XL Tab PO SCH ×2 (09:59→17:45)
[2018-02-12] MEDS: Pantoprazole 40 mg EC Tab PO SCH (10:07)
[2018-02-12] MEDS ORDERED: Barium Sulfate Susp 2.1% w/v, 2.0% w/w 450 mL Bottle PO ONE (10:20)
[2018-02-12] MEDS ORDERED: Iohexol 350 MG/100 ML VIAL ONE (10:52)
[2018-02-12] MEDS: Cefepime IV 2 gm in NS 2 GM/100 ML BAG IVPB SCH ×2 (12:23→21:21)
--- NOTE | 2018-02-12 12:51 | CARD ---
APPROVED REPORT EXAM: Two-dimensional and M-mode echocardiogram with Doppler and color Doppler. INDICATION Atrial Fibrillation SEPSIS 2D DIMENSIONS Left Atrium (2D)3.5 (1.6-4.0cm)IVSd0.8 (0.7-1.1cm) LVDd3.6 (3.9-5.9cm)PWd0.9 (0.7-1.1cm) LVDs2.7 (2.5-4.0cm)FS (%) 26.3 % LVEF (%)52.6 (>50%) M-Mode DIMENSIONS Aortic Root3.30 (2.2-3.7cm)Aortic Cusp Exc.1.50 (1.5-2.0cm) Aortic Valve AoV Peak Hjkidxvh824.0cm/Cleopatra Peak GR.7mmHg Mitral Valve MV E Xnmuofag19.2cm/sMV A Ifkgoapv48.7cm/sE/A ratio1.0 TDI Lateral E' Peak V10.60cm/sMedial E' Peak V9.36cm/sE/Lateral E'5.8 E/Medial E'6.5 Tricuspid Valve TR Peak Skxaxrwj346pd/sRAP [id number] Peak Gr.31mmHg [id number] LEFT VENTRICLE The left ventricle is normal size. There is borderline to mild concentric left ventricular hypertrophy. Left ventricle systolic function is low normal.EF-50-55% There is mild hypokinesis in the apical anterior wall. Transmitral Doppler flow pattern is Grade III-reversible restrictive diastolic dysfunction. No left ventricle thrombus noted on this study. There is no ventricular septal defect visualized. There is no left ventricular aneurysm. There is no mass noted in the left ventricle. RIGHT VENTRICLE The right ventricle is moderately dilated. There is normal right ventricular wall thickness. Systolic function of RV is mildly to moderately reduced. ATRIA The left atrium size is normal. The right atrium is mildly dilated. The interatrial septum is intact with no evidence for an atrial septal defect. AORTIC VALVE The aortic valve is thickened but opens well. No aortic regurgitation is present. There is no aortic valvular stenosis. There is no aortic valvular vegetation. MITRAL VALVE The mitral valve is thickened but opens well. Mitral regurgitation is trace. There is no mitral valve stenosis. There is no evidence of mitral valve prolapse. TRICUSPID VALVE The tricuspid valve leaflets are thickened , but open well. There is mild tricuspid regurgitation.RVSP-41 mmof Hg. There is no tricuspid valve stenosis. There is no tricuspid valve prolapse or vegetation. PULMONIC VALVE The pulmonic valve is not well visualized. GREAT VESSELS The aortic root is normal in size. The ascending aorta is normal in size. The pulmonary artery is normal. The IVC is normal in size and collapses >50% with inspiration. PERICARDIAL EFFUSION There is no pleural effusion. There is no pericardial effusion. <Conclusion> The left ventricle is normal size. There is borderline to mild concentric left ventricular hypertrophy. Left ventricle systolic function is low normal.EF-50-55% The right ventricle is moderately dilated. Systolic function of RV is mildly to moderately reduced. No aortic regurgitation is present. Mitral regurgitation is trace. There is mild tricuspid regurgitation.RVSP-41 mmof Hg. There is no pericardial effusion. The IVC is normal in size and collapses >50% with inspiration. No vegetation or thrombus noted.
--- NOTE | 2018-02-12 12:58 | CP.PCM.CON ---
History of Present Illness - History of Present Illness History of Present Illness: Nephrology Consultation Note: Assessment: Stable sepsis with lactic acidosis ? source Diabetic chronic Kidney Disease (E11.22) Hypertensive Chronic Kidney Disease (I12.9) Chronic Kidney Disease (N18.3) Stage 3 without proteinuria (R80.9) stable Anemia, CAD s/p CABG urine retention ? BPH Plan No acute need for renal replacement therapy at this time. Hypertension control with meds as ordered. Patient not on ACEI/ARB due to VANDANA and low BP Monitor Input/Output, daily weights and renal function with basic metabolic panel will start flomax 0.4 mg per day due to respi findings, will lower IVF Check urine analysis, spot protein/creatinine and albumin/creatinine ratio Check for 25-OH vitamin D, iPTH, phosphorus level, iron studies and TSAT/ Ferritin Dose meds/antibiotics for GFR>50. Avoid fleets enema/magnesium based laxatives. Avoid nephrotoxins/NSAIDs Glycemic control Further work up/management as per primary team Thanks for allowing me to participate in care of your patient. Will follow patient with you. Please call if any Qs. d/w son and team Dr Daniel Fields Office: [phone] Chief Complaint; cough HPI: Pt is a 72 M with hx of diabetes Mellitus ( years), hypertension (years), CAD s/p CABG 2 years ago presented with complaints of back pain and fever, being worked up for sepsis, lactic acidosis, also seen by neuro due to leg weakness. pt not aware about CKD in past. serum cr 1.3 in aug 2017 pt also had urine retention s/p barboza Denies OTC/herbal meds or NSAIDs had recent iodinated contrast exposure. No obvious episodes of low BP although SBP 100 range ROS: staff helped in lao interpretation Cardiovascular: No chest pain. Pulmonary: No shortness of breath but has cough and wheezing Gastrointestinal: denies abdominal pain No nausea. No vomiting. Genitourinary: No pain while urinating. Denies blood in urine. reported thin stream prior All other negative except as mentioned in HPI Physical Examination: General Appearance: Comfortable, in no acute respiratory distress, co-operative . Vitals reviewed and noted as below Head; Atraumatic, normocephalic ENT: no ulcers no thrush. Tongue is midline. Oropharynx: no rash or ulcers. EYES: Pupils are equal, round and reactive to light accommodation. Eye muscles and extraocular movement intact. Sclera is anicteric. Neck; supple no lymphadenopathy, no thyromegaly or bruit Lungs: Normal respiratory rate/effort. Breath sounds bilateral equal and has basal crackles with wheezing Heart: Normal rate. s1s2 normal. No rub or gallop. Extremities: no edema. No varicose veins Neurological: Patient is alert, awake and oriented to person, place and time. Skin: Warm and dry. Normal turgor. No rash. Palpitation: Normal elasticity for age Abdomen: Abdomen is soft. Bowel sounds +. There is mild abdominal tenderness with distension, no guarding/rigidity no organomegaly Psych: normal insight and normal affect/mood MSK: no joint tenderness or swelling. Digits and nails normal, no deformity : kidney or bladder not palpable. has barboza Labs/imaging reviewed. Past medical history, past surgical history, family history, social history, allergy reviewed and noted as below Family hx: no hx of CKD. Rest non-contributory work up: lactic acid 5.4 UA no protein CTA chest/MRI spine/brain: reviewed and unremarkable Past Patient History - Infectious Disease Hx of Infectious Diseases: None - Past Social History Smoking Status: Never Smoked - CARDIAC Hx Cardiac Disorders: Yes Hx Hypertension: Yes - PULMONARY Hx Respiratory Disorders: No - NEUROLOGICAL Hx Neurological Disorder: No - HEENT Hx HEENT Problems: No - RENAL Hx Chronic Kidney Disease: No - ENDOCRINE/METABOLIC Hx Endocrine Disorders: Yes Hx Diabetes Mellitus Type 2: Yes - HEMATOLOGICAL/ONCOLOGICAL Hx Blood Disorders: No - INTEGUMENTARY Hx Dermatological Problems: No - MUSCULOSKELETAL/RHEUMATOLOGICAL Hx Falls: Yes - GASTROINTESTINAL Hx Gastrointestinal Disorders: No - GENITOURINARY/GYNECOLOGICAL Hx Genitourinary Disorders: No - PSYCHIATRIC Hx Substance Use: No - SURGICAL HISTORY Hx Surgeries: Yes (cabg) Hx Open Heart Surgery: Yes - ANESTHESIA Hx Anesthesia: Yes Meds Allergies/Adverse Reactions: Allergies Allergy/AdvReac Type Severity Reaction Status Date / Time No Known Allergies Allergy Verified 08/03/17 15:11 - Medications Medications: Current Medications Acetaminophen (Tylenol 325mg Tab) 650 mg PO Q6H PRN PRN Reason: Fever >100.4 F Last Admin: 02/12/18 06:07 Dose: 650 mg Apixaban (Eliquis) 5 mg PO BID SKYLER PRN Reason: Protocol Atorvastatin Calcium (Lipitor) 10 mg PO DIN [facility] Gabapentin (Neurontin) 300 mg PO QID SKYLER PRN Reason: Protocol Last Admin: 02/12/18 09:59 Dose: 300 mg Doxycycline Hyclate 100 mg/ (Sodium Chloride) 100 mls @ 100 mls/hr IVPB Q12 SKYLER PRN Reason: Protocol Last Admin: 02/12/18 10:01 Dose: 100 mls/hr Cefepime HCl (Maxipime 2gm) 2 gm in 100 mls @ 100 mls/hr IVPB Q12 SKYLER PRN Reason: Protocol Stop: 02/17/18 10:01 Last Admin: 02/12/18 12:23 Dose: 100 mls/hr Vancomycin HCl (Vancomycin 1gm) 1 gm in 250 mls @ 167 mls/hr IVPB Q12H SKYLER PRN Reason: Protocol Sodium Chloride (Sodium Chloride 0.9%) 1,000 mls @ 50 mls/hr IV .Q20H [facility] Last Admin: 02/12/18 12:35 Dose: 50 mls/hr Insulin Human Regular (Humulin R Low) 0 units SC ACHS SKYLER PRN Reason: Protocol Last Admin: 02/12/18 12:22 Dose: 1 units Levalbuterol HCl (Xopenex) 0.63 mg IH [id number] PRN PRN Reason: Shortness of Breath Metoprolol Succinate (Toprol Xl) 25 mg PO BID [facility] Last Admin: 02/12/18 09:59 Dose: 25 mg Pantoprazole Sodium (Protonix Ec Tab) 40 mg PO DAILY [facility] Last Admin: 02/12/18 10:07 Dose: 40 mg Results - Vital Signs Recent Vital Signs: Last Vital Signs Temp 98.8 F 02/12/18 09:12 Pulse 84 02/12/18 09:59 Resp 20 02/12/18 06:00 BP 108/70 02/12/18 09:59 Pulse Ox 96 02/12/18 06:00 - Labs Result Diagrams: 02/11/18 12:00 02/12/18 06:30 Labs: Laboratory Results - last 24 hr 02/11/18 02/12/18 02/12/18 21:40 06:30 06:30 Sodium 140 Potassium 4.8 Chloride 107 Carbon Dioxide 23 Anion Gap 15 BUN 18 Creatinine 1.2 Est GFR ( Amer) > 60 Est GFR (Non-Af Amer) 60 POC Glucose (mg/dL) 181 H Random Glucose 203 H Calcium 7.9 L Phosphorus 2.6 Magnesium 1.7 Triglycerides 160 Cholesterol 135 LDL Cholesterol Direct 66 HDL Cholesterol 38 TSH 3rd Generation 0.91 02/12/18 07:25 Sodium Potassium Chloride Carbon Dioxide Anion Gap BUN Creatinine Est GFR ( Amer) Est GFR (Non-Af Amer) POC Glucose (mg/dL) 197 H Random Glucose Calcium Phosphorus Magnesium Triglycerides Cholesterol LDL Cholesterol Direct HDL Cholesterol TSH 3rd Generation
--- NOTE | 2018-02-12 14:35 | CT ---
PROCEDURE: CT Abdomen and Pelvis with contrast HISTORY: fever sepsis, weakness, source COMPARISON: None. TECHNIQUE: Contrast dose: 100 mL Omnipaque 350 Radiation dose: Total exam DLP = 748.29 mGy-cm. This CT exam was performed using one or more of the following dose reduction techniques: Automated exposure control, adjustment of the mA and/or kV according to patient size, and/or use of iterative reconstruction technique. FINDINGS: LOWER THORAX: Minimal linear scar/ atelectasis in right lower lobe. LIVER: Evaluation limited due to failure to include the most cephalad aspect of the liver in the examination. No mass. Normal size. Smooth contour. No biliary dilatation. GALLBLADDER AND BILE DUCTS: Dependent high attenuation material likely represents vicarious excretion of contrast administered on 02/11/2018. No mural thickening. No calcified gallstones. PANCREAS: Unremarkable. No gross lesion or ductal dilatation. SPLEEN: Unremarkable. ADRENALS: Unremarkable. No mass. KIDNEYS AND URETERS: Unremarkable. No hydronephrosis. No solid mass. VASCULATURE: Unremarkable. No aortic aneurysm. BOWEL: Unremarkable. No obstruction. No gross mural thickening. APPENDIX: Not identified. No secondary findings to suggest appendicitis. PERITONEUM: Unremarkable. No free fluid. No free air. LYMPH NODES: Unremarkable. No enlarged lymph nodes. BLADDER: Decompressed around Spears catheter balloon. REPRODUCTIVE: Unremarkable prostate BONES: No acute fracture. OTHER FINDINGS: None. IMPRESSION: No acute abnormality.
[2018-02-12] MEDS: Vancomycin 1gm in NS 250ml 1 GM/250 ML BAG IVPB SCH (15:10)
--- NOTE | 2018-02-12 16:29 | CP.PCM.CON ---
History of Present Illness - History of Present Illness History of Present Illness: 72 year old male with PMH of CAD S/P CABG, HTN, DM came in to [facility] because of pain in the lower back which is intermittent with difficulty ambulating. He also has some weakness of both lower extremities but no decreased sensation. The patient states that the pain started even a few weeks ago and while he was driving yesterday he had some dizziness and had apparently a facial droop which resolved when he got the ED. He also was found to have fevers in the ED. He denies headache, no nausea or vomiting, no chest pain, no chest pain, no abdominal pain, no diarrhea, no dysuria, no dysphagia. He denies recent travel outside of [place] in the past 3 months. Infectious Diseases consult is requested to further evaluate and manage. Review of Systems - Review of Systems All systems: reviewed and no additional remarkable complaints except (as per HPI ) Past Patient History - Infectious Disease Hx of Infectious Diseases: None - Past Social History Smoking Status: Never Smoked - CARDIAC Hx Cardiac Disorders: Yes Hx Heart Attack: Yes Hx Hypertension: Yes Other/Comment: open heart surgery - PULMONARY Hx Respiratory Disorders: No - NEUROLOGICAL Hx Neurological Disorder: No - HEENT Hx HEENT Problems: No - RENAL Hx Chronic Kidney Disease: No - ENDOCRINE/METABOLIC Hx Endocrine Disorders: Yes Other/Comment: diabetic - HEMATOLOGICAL/ONCOLOGICAL Hx Blood Disorders: No - INTEGUMENTARY Hx Dermatological Problems: No - MUSCULOSKELETAL/RHEUMATOLOGICAL Hx Musculoskeletal Disorders: No - GASTROINTESTINAL Hx Gastrointestinal Disorders: No - GENITOURINARY/GYNECOLOGICAL Hx Genitourinary Disorders: No - PSYCHIATRIC Hx Psychophysiologic Disorder: No Hx Substance Use: No - SURGICAL HISTORY Hx Open Heart Surgery: Yes - ANESTHESIA Hx Anesthesia: Yes Meds Allergies/Adverse Reactions: Allergies Allergy/AdvReac Type Severity Reaction Status Date / Time No Known Allergies Allergy Verified 08/03/17 15:11 - Medications Medications: Current Medications Acetaminophen (Tylenol 325mg Tab) 650 mg PO Q6H PRN PRN Reason: Fever >100.4 F Atorvastatin Calcium (Lipitor) 10 mg PO DIN [facility] Gabapentin (Neurontin) 300 mg PO QID [facility] PRN Reason: Protocol Last Admin: 02/11/18 22:28 Dose: 300 mg Sodium Chloride (Sodium Chloride 0.9%) 1,000 mls @ 100 mls/hr IV .Q10H [facility] Last Admin: 02/11/18 22:29 Dose: 100 mls/hr Doxycycline Hyclate 100 mg/ (Sodium Chloride) 100 mls @ 100 mls/hr IVPB Q12 [facility] PRN Reason: Protocol Last Admin: 02/11/18 22:38 Dose: 100 mls/hr Insulin Human Regular (Humulin R Low) 0 units SC ACHS [facility] PRN Reason: Protocol Levalbuterol HCl (Xopenex) 0.63 mg IH [id number] PRN PRN Reason: Shortness of Breath Metoprolol Succinate (Toprol Xl) 25 mg PO BID [facility] Last Admin: 02/11/18 22:29 Dose: 25 mg Pantoprazole Sodium (Protonix Ec Tab) 40 mg PO DAILY [facility] Physical Exam - Constitutional Appears: Chronically Ill - Head Exam Head Exam: NORMAL INSPECTION - Neck Exam Neck exam: Negative for: Meningismus - Respiratory Exam Respiratory Exam: Decreased Breath Sounds - Cardiovascular Exam Cardiovascular Exam: +S1, +S2 - GI/Abdominal Exam GI & Abdominal Exam: Soft. absent: Tenderness - Back Exam Back exam: absent: CVA tenderness (L), CVA tenderness (R), paraspinal tenderness , tenderness, vertebral tenderness - Neurological Exam Additional comments: 4+/5 motor strength in the lower extremities Results - Vital Signs Recent Vital Signs: Last Vital Signs Temp 99.2 F 02/11/18 20:04 Pulse 97 H 02/11/18 22:29 Resp 16 02/11/18 20:04 BP 134/75 02/11/18 22:29 Pulse Ox 99 02/11/18 20:04 - Labs Result Diagrams: 02/11/18 12:00 02/12/18 06:30 Labs: Laboratory Results - last 24 hr 02/11/18 21:40 POC Glucose (mg/dL) 181 H Assessment & Plan - Assessment and Plan (Free Text) Plan: Assessment Systemic Inflammatory response syndrome R/O due to TIA, R/O demyelinating disease CAD S/P CABG HTN DM Plan REviewed MRI brain and spine - no abnormalities noted - may benefit from lumbar puncture by Neurology started Vancomycin, CEfepime and Doxycycline and follow up blood cx - will monitor clinically
--- NOTE | 2018-02-12 17:57 | CP.PCM.PN ---
Subjective - Date & Time of Evaluation Date of Evaluation: 02/12/18 Time of Evaluation: 13:15 - Subjective Subjective: Mr. Eckert was seen and examined today at bedside. He was in better spirits today and said he was feeling better. He was slightly confused at times, but then is able to return to normal conversation. He denied weakness, headache, sensory changes, dizziness, nausea, vomiting or visual deficits. Objective - Vital Signs/Intake and Output Vital Signs (last 24 hours): Temp Pulse Resp BP Pulse Ox 99.1 F 85 17 97/67 L 90 L 02/12/18 16:30 02/12/18 16:30 02/12/18 16:30 02/12/18 17:45 02/12/18 16:30 Intake and Output: 02/12/18 02/12/18 06:59 18:59 Intake Total 960 Output Total 2200 Balance -1240 - Medications Medications: Current Medications Acetaminophen (Tylenol 325mg Tab) 650 mg PO Q6H PRN PRN Reason: Fever >100.4 F Last Admin: 02/12/18 06:07 Dose: 650 mg Acetaminophen (Tylenol 325mg Tab) 650 mg PO Q4H PRN PRN Reason: Pain, Mild (1-3) Last Admin: 02/12/18 17:23 Dose: 650 mg Apixaban (Eliquis) 5 mg PO BID [facility] PRN Reason: Protocol Last Admin: 02/12/18 17:49 Dose: 5 mg Atorvastatin Calcium (Lipitor) 10 mg PO DIN [facility] Last Admin: 02/12/18 17:49 Dose: 10 mg Gabapentin (Neurontin) 300 mg PO QID [facility] PRN Reason: Protocol Last Admin: 02/12/18 17:49 Dose: 300 mg Doxycycline Hyclate 100 mg/ (Sodium Chloride) 100 mls @ 100 mls/hr IVPB Q12 [facility] PRN Reason: Protocol Last Admin: 02/12/18 10:01 Dose: 100 mls/hr Cefepime HCl (Maxipime 2gm) 2 gm in 100 mls @ 100 mls/hr IVPB Q12 [facility] PRN Reason: Protocol Stop: 02/17/18 10:01 Last Admin: 02/12/18 12:23 Dose: 100 mls/hr Vancomycin HCl (Vancomycin 1gm) 1 gm in 250 mls @ 167 mls/hr IVPB Q12H [facility] PRN Reason: Protocol Last Admin: 02/12/18 15:10 Dose: 167 mls/hr Sodium Chloride (Sodium Chloride 0.9%) 1,000 mls @ 50 mls/hr IV .Q20H [facility] Last Admin: 02/12/18 12:35 Dose: 50 mls/hr Insulin Human Regular (Humulin R Low) 0 units SC ACHS [facility] PRN Reason: Protocol Last Admin: 02/12/18 17:23 Dose: 1 units Levalbuterol HCl (Xopenex) 0.63 mg IH [id number] PRN PRN Reason: Shortness of Breath Metoprolol Succinate (Toprol Xl) 25 mg PO BID [facility] Last Admin: 02/12/18 17:45 Dose: Not Given Pantoprazole Sodium (Protonix Ec Tab) 40 mg PO DAILY [facility] Last Admin: 02/12/18 10:07 Dose: 40 mg Tamsulosin HCl (Flomax) 0.4 mg PO DAILY [facility] - Labs Labs: 02/12/18 06:30 PT 14.8 SECONDS (9.4-12.5) H 02/11/18 12:00 INR 1.28 (0.93-1.08) H 02/11/18 12:00 APTT 29.1 Seconds (25.1-36.5) 02/11/18 12:00 - Neurological Exam Neurological Exam: Alert, Awake, CN II-XII Intact, Oriented x3, Reflexes Normal Neuro motor strength exam: Left Upper Extremity: 4, Right Upper Extremity: 4, Left Lower Extremity: 4, Right Lower Extremity: 4 Additional comments: NIHSS = 0 Assessment and Plan (1) Gait difficulty Assessment & Plan: Seems to be improving. Currently being treated for a possible infection. Source is still not known. MRI of the brain and spine is normal. Continue conservative management. Neurology will follow. If he continues having these episodes of confusion, we will obtain an EEG. Status: Acute
[2018-02-12] MEDS: Levalbuterol 0.63 MG/3 ML Inhal Soln UD IH PRN (18:09)
--- NOTE | 2018-02-12 21:24 | CON ---
DATE: REASON FOR CONSULTATION: Cardiac evaluation, possibly AFib, history of coronary artery bypass surgery, admitted with feeling very weak, near syncope, no loss of conscious. BRIEF CLINICAL HISTORY: This is a 72-year-old male being followed by Dr. Zach Mcgrath, with history of coronary artery bypass surgery in 2016 at [facility], three-vessel bypass, periodically sees every [address] Mcgrath; came in yesterday, was walking, felt very weak, so came to the emergency room; also complaining of the cough. Denies any chest pain, denies any shortness of breath, denies any palpitation. PAST MEDICAL HISTORY: Significant for coronary artery bypass surgery in 2016 at [facility], history of hyperlipidemia, hypertension and diabetes; and paroxysmal atrial fibrillation, on anticoagulation,Eliquis. PAST SURGICAL HISTORY: Significant for open heart surgery in 2016. CURRENT MEDICATIONS: The patient is taking at home, Protonix, metoprolol succinate, Neurontin, atorvastatin, simvastatin, Prandin, metformin, and Eliquis. ALLERGIES: NO KNOWN DRUG ALLERGY. REVIEW OF SYSTEMS: As per HPI. PHYSICAL EXAMINATION: VITAL SIGNS: Height of the patient is 5 feet 8 inches, weight of the patient is 246 pounds, body mass index is elevated at 28 kg/m2. Temperature 100.7, heart rate 91, blood pressure 101/61. HEENT: PERRLA. Extraocular muscles intact. NECK: Supple. No carotid bruits or thyromegaly. CHEST: Clear to auscultation. HEART: S1 and S2 regular. ABDOMEN: Soft. EXTREMITIES: Clubbing and cyanosis negative. LABORATORY DATA: Blood workup as follows; WBC 8.3, hemoglobin 10.8, hematocrit 33.1, platelet count 234. Chemistry shows sodium 140, potassium 4.2, chloride , carbon dioxide 23, anion gap of 15, Bun 18, creatinine is 1.2. IMPRESSION: A 72-year-old male with past medical history of diabetes, hypertension, hyperlipidemia, coronary artery disease status post coronary artery bypass graft in 2016; history of deep venous thrombosis, on Eliquis; discussed with Dr. Zach Mcgrath who follows every 3 months, remembers the patient very well. He states last 3 office visits' blood pressure was 90/60, 116/80 and 100/70. He says it always runs low, and most likely is a benign positional vertigo, also has benign positional vertigo. The patient is on Eliquis because of not in atrial fibrillation. Discussed in length with him. He also agreed to get echo because last echo was 3 month ago, to rule out any significant regurgitation or aortic stenosis. Resume previous medication and treat symptoms of upper respiratory infection. If the blood culture remains stable and the patient remains afebrile, possible discharge home soon. Follow up with Dr. Mcgrath, and turn over to Dr. Mcgrath upon discharge. We will get echo now, get lipid profile, TSH, hemoglobin A1c. We will follow with you. If the patient remains stable, we will discontinue telemetry, we will do the orthostatic hypotension. Continue broad spectrum antibiotic. Thank you Dr. Milligan for providing us the opportunity in taking care of the patient, [place]. Beatriz Santillan MD
[2018-02-13] MEDS: Vancomycin 1gm in NS 250ml 1 GM/250 ML BAG IVPB SCH ×2 (00:46→11:53)
--- NOTE | 2018-02-13 05:08 | PN ---
DATE: 02/12/2018 SUBJECTIVE: Patient seems comfortable today, more alert, more awake. He looks better. PHYSICAL EXAMINATION: VITAL SIGNS: Afebrile. His highest temperature 100.7, heart rate 91, blood pressure 130/74, respirations 18, sat 97% on 2 L. HEAD AND NECK: Normal. No JVD. No thyromegaly. CHEST: Clear, good air entry. CARDIAC: First sound and second sound normal. ABDOMEN: Soft, nontender. EXTREMITIES: No edema. NEUROLOGICAL: Patient moves all extremities. He is alert, awake, oriented x3. LABORATORY DATA: On 02/12/2018, his labs as follows: Sodium 140, potassium 4.8, chloride 107, bicarb 23, BUN 18, creatinine 1.2, blood sugar 203, calcium 7.9, and magnesium 1.7. Liver function test is normal. Patient has procalcitonin which is 0.12. Patient also has a TSH, which is normal at 0.91. CBC: White count 8.3, hemoglobin 10.8, hematocrit 33.1, platelets 234. Patient had CT chest which was negative. MRI spine, lumbar and thoracic, which was negative. Abdominal CT, abdomen and pelvis with IV contrast was negative. IMPRESSION: 1. Fever, generalized weakness, etiology unclear. CT workup seems negative. Cultures are negative. Continue IV fluids. Continue to monitor the patient clinically and continue vancomycin and meropenem and followup with ID consult. Cardiology has seen the patient. Echocardiography has been done and systolic function is [id number] reduced. Has mild mitral regurgitation, mild tricuspid regurgitation, right ventricular systolic pressure 41 mmHg which is consistent with mild pulmonary hypertension which is probably secondary to left ventricular dysfunctions. IVC is normal in size, collapsed more than 50% with inspirations that has been after 4 to 5 liters of IV fluid. 2: Systemic inflammatory response syndrome, etiology unclear, possibly in differential, a source of sepsis, transient ischemic attack,demyelinating disease, transverse myelitis. Neuro evaluation going on and so far, neurological imaging is negative. 3. Chronic atrial fibrillation with chronic systolic dysfunctions, [id number] left ventricular dysfunctions. 4. Mild pulmonary hypertension. 5. Diabetes. PLAN: To continue current therapy. Continue IV antibiotics. Followup clinically. Patient is still feeling weak. Continue IV antibiotics for now. We will follow up with other consultants. The question is whether patient will need a lumbar puncture. Discussed with Neurology, Dr. Knox. He will not need any intervention or any needle to put in, in the lumbar spine and we will resume his anticoagulant and continue IV antibiotics. Michael Milligan MD
[2018-02-13] MEDS: Levalbuterol 0.63 MG/3 ML Inhal Soln UD IH PRN (05:45)
[2018-02-13 07:13] LABS: BASO # 0.05 K/mm3 (0.0-2.0); BASO % 0.6 % (0.0-3.0); EOS # 0.4 (0.0-0.7); EOS % 5.4 % (1.5-5.0); GRAN # 4.44 (1.4-6.5); GRAN % 54.5 % (50.0-68.0); HEMOGLOBIN 11.7 g/dL (14.0-18.0); LYMPH # 2.4 (1.2-3.4); LYMPH % 29.4 % (22.0-35.0); MEAN CELL VOLUME 82.6 fl (80.0-105.0); MEAN CORPUSCULAR HEMOGLOBIN 27.9 pg (25.0-35.0); MEAN CORPUSCULAR HGB CONC 33.8 g/dl (31.0-37.0); MEAN PLATELET VOLUME 9.6 fl (7.0-11.0); MONO # 0.8 (0.1-0.6); MONO % 10.1 % (1.0-6.0); RBC 4.19 10^6/uL (3.5-6.1); RED CELL DISTRIBUTION WIDTH 15.5 % (11.5-14.5); WHITE BLOOD COUNT 8.1 10^3/ul (4.5-11.0)
[2018-02-13 07:35] LABS: BLOOD UREA NITROGEN 14 mg/dL (7-21); CALCIUM 7.9 mg/dL (8.4-10.5); GFR AFRICAN-AMERICAN > 60; GFR NON-AFRICAN AMERICAN 60
[2018-02-13] MEDS: Insulin Reg-LOW-Coverage SC SCH ×4 (08:08→22:06)
[2018-02-13] MEDS: Cefepime IV 2 gm in NS 2 GM/100 ML BAG IVPB SCH ×2 (09:18→22:00)
[2018-02-13] MEDS: Metoprolol Succinate 25 mg XL Tab PO SCH ×2 (09:18→18:19)
[2018-02-13] MEDS: Pantoprazole 40 mg EC Tab PO SCH (09:18)
--- NOTE | 2018-02-13 11:39 | HP ---
The patient was seen on Telemetry floor, main complaint is weakness in both lower extremities and fever 101. HISTORY OF PRESENT ILLNESS: This is a 72-year-old male with history of bypass surgery 3 to 4 years ago; atrial fibrillation with being on the Eliquis, came in because of his both legs feeling acutely weak and almost fell. His friend held him, brought him to the hospital because of the weakness; in the Emergency Room, noted to have the fever of 101. The patient also has been coughing for the last 2 to 3 days, was mild with no phlegm. There is no shortness of breath. No nausea or vomiting. He did also mention that he has constipation, did not move his bowels for a few days. He did not have any abdominal pain. The patient has a fever, but he does not know where it is coming from. He has no burning urination. He has not had any diarrhea or vomiting and he has not had any other complaints. The patient has been compliant with his medications including Eliquis, cardiac medications and seen by state comptroller as an outpatient as well as neurologist for his peripheral neuropathy. PAST MEDICAL HISTORY: As I mentioned, the patient has coronary artery disease; bypass surgery; atrial fibrillations; has low blood pressure, his pressure runs 100/95 systolic; history of diabetic peripheral neuropathy; diabetes mellitus and hypercholesterolemia. ALLERGIES: NO KNOWN ALLERGIES. SOCIAL HISTORY: Does not smoke. No drinking. Lives with his . FAMILY HISTORY: Noncontributory. REVIEW OF SYSTEMS: As in the present illness, he does have weakness, he does have arthritis, has peripheral neuropathy. He does have limitation of walking due to his weakness and also on and off dizziness, also frequent urinations. MEDICATIONS: Takes Protonix, Toprol, Neurontin, Lipitor, Zocor, Prandin, metformin and Eliquis. PHYSICAL EXAMINATION: VITAL SIGNS: On admission; his was running in the 90s; temperature is 101.5; heart rate 107; blood pressure 113/64, has been down to 100/61; respirations 20; saturation 99% on room air. HEAD AND NECK: Normal. No JVD. No thyromegaly. CHEST: Clear bilaterally. CARDIAC: First sound and second sound normal. ABDOMEN: Soft and nontender. EXTREMITIES: No edema. NEUROLOGIC: The patient moves all extremities. gait was not tested, but was unstable. LABORATORY DATA: White count 8.3, hemoglobin 10.8, hematocrit 33.1, platelets 234. His chemistry shows sodium 132, potassium 4.3, chloride 97, bicarbonate 18, BUN 23, creatinine 1.3, blood sugar 283. Calcium 8. Hemoglobin A1c was ordered. AST, ALT, and alkaline phosphatase is normal. Troponin was negative and LDL cholesterol 67, triglycerides are 143. The patient also had CT of the head, which is negative. CT angiogram of the head was negative. Chest x-ray, no active disease. IMPRESSION AND PLAN: A 72-year-old male came in with bilateral leg weakness, fever 101, had low bicarbonate, lactate was elevated initially and admitted the patient for; 1. Sepsis, source unclear. Blood culture has been ordered and urine culture has been ordered and covering with broad-spectrum antibiotic. The patient was given vancomycin and meropenem. ID consult, Dr. Odonnell. Neurology consult, Dr. Knox. We will follow up clinically and we will see how the patient do. Also, we will recommend CT chest and the patient has been coughing for 2 to 3 days to look for etiology of his fever. MRI of the thoracic spine and lumbar spine has been ordered by Dr. Knox. 2. Diabetes, chronic atrial fibrillations. We will consider restarting the Eliquis if no intervention will be ordered. We are also going to get Cardiology consultations. Resume Toprol-XL 25 b.i.d. and Tylenol. Continue vancomycin. Continue cefepime and we will discuss with ID consultation, Dr. Odonnell. Michael Milligan MD
--- NOTE | 2018-02-13 13:11 | CP.PCM.PN ---
Subjective - Date & Time of Evaluation Date of Evaluation: 02/13/18 Time of Evaluation: 13:09 - Subjective Subjective: Mr. Eckert was seen and examined at the bedside. He is alert, oriented, speaks mainly ICELANDIC. staff interpretation utilized and patient is alert. He is able to do feed himself independently. There was no untoward events overnight. Objective - Vital Signs/Intake and Output Vital Signs (last 24 hours): Temp Pulse Resp BP Pulse Ox 98.3 F 79 18 101/60 95 02/13/18 11:50 02/13/18 11:50 02/13/18 11:50 02/13/18 11:50 02/13/18 06:00 Intake and Output: 02/13/18 02/13/18 06:59 18:59 Intake Total 1490 Output Total 2000 Balance -510 - Medications Medications: Current Medications Acetaminophen (Tylenol 325mg Tab) 650 mg PO Q6H PRN PRN Reason: Fever >100.4 F Last Admin: 02/13/18 08:00 Dose: 650 mg Acetaminophen (Tylenol 325mg Tab) 650 mg PO Q4H PRN PRN Reason: Pain, Mild (1-3) Last Admin: 02/12/18 17:23 Dose: 650 mg Apixaban (Eliquis) 5 mg PO BID [facility] PRN Reason: Protocol Last Admin: 02/13/18 09:17 Dose: 5 mg Atorvastatin Calcium (Lipitor) 10 mg PO DIN [facility] Last Admin: 02/12/18 17:49 Dose: 10 mg Gabapentin (Neurontin) 300 mg PO QID [facility] PRN Reason: Protocol Last Admin: 02/13/18 09:16 Dose: 300 mg Cefepime HCl (Maxipime 2gm) 2 gm in 100 mls @ 100 mls/hr IVPB Q12 [facility] PRN Reason: Protocol Stop: 02/17/18 10:01 Last Admin: 02/13/18 09:18 Dose: 100 mls/hr Vancomycin HCl (Vancomycin 1gm) 1 gm in 250 mls @ 167 mls/hr IVPB Q12H [facility] PRN Reason: Protocol Last Admin: 02/13/18 11:53 Dose: 167 mls/hr Sodium Chloride (Sodium Chloride 0.9%) 1,000 mls @ 50 mls/hr IV .Q20H [facility] Last Admin: 02/12/18 12:35 Dose: 50 mls/hr Insulin Human Regular (Humulin R Low) 0 units SC ACHS [facility] PRN Reason: Protocol Last Admin: 02/13/18 11:52 Dose: 2 units Levalbuterol HCl (Xopenex) 0.63 mg IH [id number] PRN PRN Reason: Shortness of Breath Last Admin: 02/13/18 05:45 Dose: 0.63 mg Metoprolol Succinate (Toprol Xl) 25 mg PO BID [facility] Last Admin: 02/13/18 09:18 Dose: 25 mg Pantoprazole Sodium (Protonix Ec Tab) 40 mg PO DAILY [facility] Last Admin: 02/13/18 09:18 Dose: 40 mg Tamsulosin HCl (Flomax) 0.4 mg PO DAILY [facility] Last Admin: 02/13/18 09:17 Dose: 0.4 mg - Labs Labs: 02/13/18 06:30 02/13/18 06:30 PT 14.8 SECONDS (9.4-12.5) H 02/11/18 12:00 INR 1.28 (0.93-1.08) H 02/11/18 12:00 APTT 29.1 Seconds (25.1-36.5) 02/11/18 12:00 - Constitutional Appears: No Acute Distress - Head Exam Head Exam: NORMAL INSPECTION - Neurological Exam Neurological Exam: Alert, Awake, Oriented x3 Neuro motor strength exam: Left Upper Extremity: 5, Right Upper Extremity: 5, Left Lower Extremity: 4, Right Lower Extremity: 4 Additional comments: aake, alert, moves all extremities independently, does some of his ADL. Assessment and Plan (1) Gait difficulty Assessment & Plan: Case discussed with Dr. Knox, continue all current medical, physical and occupational therapies. If the patient will have confusion after treating any infection, electrolyte abnormalities, to do an EEG. Status: Acute
--- NOTE | 2018-02-13 13:17 | CP.PCM.PN ---
Subjective - Date & Time of Evaluation Date of Evaluation: 02/13/18 Time of Evaluation: 09:45 - Subjective Subjective: Still with leg weakness, no fevers, no nausea. Objective - Vital Signs/Intake and Output Vital Signs (last 24 hours): Temp Pulse Resp BP Pulse Ox 99.3 F 94 H 18 97/60 L 95 02/13/18 06:00 02/13/18 06:00 02/13/18 06:00 02/13/18 06:00 02/13/18 06:00 Intake and Output: 02/13/18 02/13/18 06:59 18:59 Intake Total 1490 Output Total 2000 Balance -510 - Medications Medications: Current Medications Acetaminophen (Tylenol 325mg Tab) 650 mg PO Q6H PRN PRN Reason: Fever >100.4 F Last Admin: 02/12/18 06:07 Dose: 650 mg Acetaminophen (Tylenol 325mg Tab) 650 mg PO Q4H PRN PRN Reason: Pain, Mild (1-3) Last Admin: 02/12/18 17:23 Dose: 650 mg Apixaban (Eliquis) 5 mg PO BID [facility] PRN Reason: Protocol Last Admin: 02/12/18 17:49 Dose: 5 mg Atorvastatin Calcium (Lipitor) 10 mg PO DIN [facility] Last Admin: 02/12/18 17:49 Dose: 10 mg Gabapentin (Neurontin) 300 mg PO QID [facility] PRN Reason: Protocol Last Admin: 02/12/18 21:20 Dose: 300 mg Cefepime HCl (Maxipime 2gm) 2 gm in 100 mls @ 100 mls/hr IVPB Q12 [facility] PRN Reason: Protocol Stop: 02/17/18 10:01 Last Admin: 02/12/18 21:21 Dose: 100 mls/hr Vancomycin HCl (Vancomycin 1gm) 1 gm in 250 mls @ 167 mls/hr IVPB Q12H [facility] PRN Reason: Protocol Last Admin: 02/13/18 00:46 Dose: 167 mls/hr Sodium Chloride (Sodium Chloride 0.9%) 1,000 mls @ 50 mls/hr IV .Q20H [facility] Last Admin: 02/12/18 12:35 Dose: 50 mls/hr Insulin Human Regular (Humulin R Low) 0 units SC ACHS [facility] PRN Reason: Protocol Last Admin: 02/12/18 23:16 Dose: Not Given Levalbuterol HCl (Xopenex) 0.63 mg IH [id number] PRN PRN Reason: Shortness of Breath Last Admin: 02/13/18 05:45 Dose: 0.63 mg Metoprolol Succinate (Toprol Xl) 25 mg PO BID [facility] Last Admin: 02/12/18 17:45 Dose: Not Given Pantoprazole Sodium (Protonix Ec Tab) 40 mg PO DAILY [facility] Last Admin: 02/12/18 10:07 Dose: 40 mg Tamsulosin HCl (Flomax) 0.4 mg PO DAILY [facility] - Labs Labs: 02/12/18 06:30 PT 14.8 SECONDS (9.4-12.5) H 02/11/18 12:00 INR 1.28 (0.93-1.08) H 02/11/18 12:00 APTT 29.1 Seconds (25.1-36.5) 02/11/18 12:00 - Constitutional Appears: Chronically Ill - Head Exam Head Exam: NORMAL INSPECTION - ENT Exam ENT Exam: Mucous Membranes Moist - Neck Exam Neck Exam: absent: Meningismus - Respiratory Exam Respiratory Exam: Decreased Breath Sounds - Cardiovascular Exam Cardiovascular Exam: +S1, +S2 - GI/Abdominal Exam GI & Abdominal Exam: Soft. absent: Tenderness Assessment and Plan - Assessment and Plan (Free Text) Plan: Assessment Systemic Inflammatory response syndrome R/O due to TIA, R/O demyelinating disease CAD S/P CABG HTN DM Plan Reviewed MRI brain and spine - no abnormalities noted - may benefit from lumbar puncture by Neurology and we have discussed this with Dr. Knox - will also do viral work-up to see if we this can explain fever and weakness continue Vancomycin, Cefepime and Doxycycline for now and follow up blood cx - will continue to monitor clinically
--- NOTE | 2018-02-13 14:03 | PN ---
DATE: 02/13/2018 REASON FOR CONSULTATION AND FOLLOWUP: Cardiac evaluation, history of coronary artery disease, admitted with feeling very weak, near syncope, possibly sepsis, orthostatic hypotension positive. SUBJECTIVE: Patient denies any chest pain, shortness of breath, or any palpitations. OBJECTIVE: GENERAL: Not in apparent distress. VITAL SIGNS: Temperature afebrile, heart rate 85, blood pressure 97/60. Yesterday, orthostatic Bp was recorded, Lying 118/60, sitting 80/54, standing 94/50, positive for orthostatic hypotension. HEENT: PERRLA, intact. NECK: Supple. No carotid bruit or thyromegaly. CHEST: Clear to auscultation. HEART: S1 and S2, regular. ABDOMEN: Soft. EXTREMITIES: Clubbing and cyanosis negative. LABORATORY DATA: Blood workup as follows. WBC 8.1, hemoglobin 11, hematocrit 34.6, and platelet count 228. Chemistry shows sodium 141, potassium 4, chloride 107, carbon dioxide 24, anion gap of 15. BUN 14, creatinine 1.2. Total protein 6.6, albumin 3.2, albumin globulin ratio 1.2. Yesterday, patient had lipid profile done that shows total triglyceride of 160, total cholesterol 135, LDL 58, HDL 38. Patient had echocardiography done yesterday that revealed normal LV size, ejection fraction lower limit normal 50% to 55%. Right ventricle moderately dilated. Systolic function of RV is moderately reduced. Trace mitral regurgitation and mild tricuspid regurgitation with RV systolic pressure of 41. No pericardial effusion. IMPRESSION: A 72-year-old admitted with past medical history significant for diabetes, hypertension, hyperlipidemia, coronary artery disease, status post coronary artery bypass graft in 2016, being followed by Dr. Zach Mcgrath. Spoke to them. Patient is to follow every 3 months. According to him cardiac status is stable and he runs low bp, baseline blood pressure is in three office visits, 90/60,followed by 116/80 and 100/70. Yesterday, the patient came with generalized weakness and found to be mild orthostatic hypotension. Patient was on Eliquis because of deep venous thrombosis, not in atrial fibrillation. Discussed with Dr. Mcgrath in length. RECOMMENDATIONS: We will continue gentle hydration. Repeat orthostatic hypotension. Continue broad-spectrum antibiotics. Follow up blood culture. If remains stable, we will discontinue telemetry. For now, we will continue telemetry. We will follow with you. Continue cautious hydration. While the patient becomes euvolemic, Dc IV fluids. We will repeat CBC, CMP, mag, phos in the morning. Thank you Dr. Milligan, for providing us the opportunity in taking care of the patient, Reinier Eckert. Beatriz Santillan MD MTDD
[2018-02-13] MEDS ORDERED: Ergocalciferol 50,000 Intl Units Cap PO SCH (14:15)
--- NOTE | 2018-02-13 14:52 | CP.PCM.PN ---
Subjective - Date & Time of Evaluation Date of Evaluation: 02/13/18 Time of Evaluation: 14:51 - Subjective Subjective: Nephrology Consultation Note: Assessment: Stable sepsis with lactic acidosis ? source asthmatic bronchitis Diabetic chronic Kidney Disease (E11.22) Hypertensive Chronic Kidney Disease (I12.9) Chronic Kidney Disease (N18.3) Stage 3 without proteinuria (R80.9) stable Anemia, CAD s/p CABG, vit d insuff urine retention ? BPH Plan No acute need for renal replacement therapy at this time. BP on low side. Patient not on ACEI/ARB due to VANDANA and low BP Monitor Input/Output, daily weights and renal function with basic metabolic panel will start flomax 0.4 mg per day due to respi findings, will check CXR started iron supplements, MVI and Vit D Check urine analysis, spot protein/creatinine and albumin/creatinine ratio Dose meds/antibiotics for GFR>50. Avoid fleets enema/magnesium based laxatives. Avoid nephrotoxins/NSAIDs Glycemic control Further work up/management as per primary team Thanks for allowing me to participate in care of your patient. Will follow patient with you. Please call if any Qs. had d/w son and team Dr Daniel Fields Office: [phone] Chief Complaint; cough HPI: Pt is a 72 M with hx of diabetes Mellitus ( years), hypertension (years), CAD s/p CABG 2 years ago presented with complaints of back pain and fever, being worked up for sepsis, lactic acidosis, also seen by neuro due to leg weakness. pt not aware about CKD in past. serum cr 1.3 in aug 2017 pt also had urine retention s/p barboza Denies OTC/herbal meds or NSAIDs had recent iodinated contrast exposure. No obvious episodes of low BP although SBP 100 range ROS: staff helped in icelandic interpretation Cardiovascular: No chest pain. Pulmonary: No shortness of breath but has cough and wheezing Gastrointestinal: denies abdominal pain No nausea. No vomiting. Genitourinary: No pain while urinating. Denies blood in urine. reported thin stream prior All other negative except as mentioned in HPI Physical Examination: General Appearance: Comfortable, in no acute respiratory distress, co-operative . Vitals reviewed and noted as below Head; Atraumatic, normocephalic ENT: no ulcers no thrush. Tongue is midline. Oropharynx: no rash or ulcers. EYES: Pupils are equal, round and reactive to light accommodation. Eye muscles and extraocular movement intact. Sclera is anicteric. Neck; supple no lymphadenopathy, no thyromegaly or bruit Lungs: Normal respiratory rate/effort. Breath sounds bilateral equal and has basal crackles with wheezing Heart: Normal rate. s1s2 normal. No rub or gallop. Extremities: no edema. No varicose veins Neurological: Patient is alert, awake and oriented to person, place and time. Skin: Warm and dry. Normal turgor. No rash. Palpitation: Normal elasticity for age Abdomen: Abdomen is soft. Bowel sounds +. There is mild abdominal tenderness with distension, no guarding/rigidity no organomegaly Psych: normal insight and normal affect/mood MSK: no joint tenderness or swelling. Digits and nails normal, no deformity : kidney or bladder not palpable. has barboza Labs/imaging reviewed. Past medical history, past surgical history, family history, social history, allergy reviewed and noted as below Family hx: no hx of CKD. Rest non-contributory work up: lactic acid 5.4 UA no protein CTA chest/MRI spine/brain: reviewed and unremarkable Objective - Vital Signs/Intake and Output Vital Signs (last 24 hours): Temp Pulse Resp BP Pulse Ox 98.3 F 79 18 101/60 95 02/13/18 11:50 02/13/18 11:50 02/13/18 11:50 02/13/18 11:50 02/13/18 06:00 Intake and Output: 02/13/18 02/13/18 06:59 18:59 Intake Total 1490 Output Total 2000 Balance -510 - Medications Medications: Current Medications Acetaminophen (Tylenol 325mg Tab) 650 mg PO Q6H PRN PRN Reason: Fever >100.4 F Last Admin: 02/13/18 08:00 Dose: 650 mg Acetaminophen (Tylenol 325mg Tab) 650 mg PO Q4H PRN PRN Reason: Pain, Mild (1-3) Last Admin: 02/12/18 17:23 Dose: 650 mg Apixaban (Eliquis) 5 mg PO BID [facility] PRN Reason: Protocol Last Admin: 02/13/18 09:17 Dose: 5 mg Atorvastatin Calcium (Lipitor) 10 mg PO DIN [facility] Last Admin: 02/12/18 17:49 Dose: 10 mg Doxycycline Hyclate (Doryx) 100 mg PO Q12 [facility] PRN Reason: Protocol Ergocalciferol (Drisdol 50,000 Intl Units Cap) 1 cap PO Q7D [facility] Ferrous Gluconate (Fergon) 324 mg PO TID [facility] Gabapentin (Neurontin) 300 mg PO QID [facility] PRN Reason: Protocol Last Admin: 02/13/18 14:04 Dose: 300 mg Cefepime HCl (Maxipime 2gm) 2 gm in 100 mls @ 100 mls/hr IVPB Q12 [facility] PRN Reason: Protocol Stop: 02/17/18 10:01 Last Admin: 02/13/18 09:18 Dose: 100 mls/hr Vancomycin HCl (Vancomycin 1gm) 1 gm in 250 mls @ 167 mls/hr IVPB Q12H [facility] PRN Reason: Protocol Last Admin: 02/13/18 11:53 Dose: 167 mls/hr Sodium Chloride (Sodium Chloride 0.9%) 1,000 mls @ 50 mls/hr IV .Q20H [facility] Last Admin: 02/12/18 12:35 Dose: 50 mls/hr Insulin Human Regular (Humulin R Low) 0 units SC ACHS [facility] PRN Reason: Protocol Last Admin: 02/13/18 11:52 Dose: 2 units Levalbuterol HCl (Xopenex) 0.63 mg IH [id number] PRN PRN Reason: Shortness of Breath Last Admin: 02/13/18 05:45 Dose: 0.63 mg Metoprolol Succinate (Toprol Xl) 25 mg PO BID [facility] Last Admin: 02/13/18 09:18 Dose: 25 mg Pantoprazole Sodium (Protonix Ec Tab) 40 mg PO DAILY [facility] Last Admin: 02/13/18 09:18 Dose: 40 mg Tamsulosin HCl (Flomax) 0.4 mg PO DAILY [facility] Last Admin: 02/13/18 09:17 Dose: 0.4 mg Vitamin B Complex/Vit C/Folic Acid (Nephro-Usha) 1 tab PO 0800 [facility] - Labs Labs: 02/13/18 06:30 02/13/18 06:30 PT 14.8 SECONDS (9.4-12.5) H 02/11/18 12:00 INR 1.28 (0.93-1.08) H 02/11/18 12:00 APTT 29.1 Seconds (25.1-36.5) 02/11/18 12:00
--- NOTE | 2018-02-13 15:33 | RAD ---
HISTORY: wheezing and crackles on exam COMPARISON: 02/11/2018 FINDINGS: LUNGS: No active pulmonary disease. PLEURA: No significant pleural effusion identified, no pneumothorax apparent. CARDIOVASCULAR: Normal. OSSEOUS STRUCTURES: No significant abnormalities. VISUALIZED UPPER ABDOMEN: Normal. OTHER FINDINGS: None. IMPRESSION: No active disease.
[2018-02-13 19:26] VITALS: RESP 20
[2018-02-13] MEDS: Acetylcysteine 20% Inhal Soln (4ml) IH SCH (20:28)
[2018-02-13] MEDS: Levalbuterol 0.63 MG/3 ML Inhal Soln UD IH SCH (20:28)
[2018-02-14] MEDS: Vancomycin 1gm in NS 250ml 1 GM/250 ML BAG IVPB SCH ×2 (00:33→13:12)
[2018-02-14] MEDS: Levalbuterol 0.63 MG/3 ML Inhal Soln UD IH SCH ×4 (01:45→20:15)
[2018-02-14 06:46] LABS: BASO # 0.04 K/mm3 (0.0-2.0); BASO % 0.5 % (0.0-3.0); EOS # 0.5 (0.0-0.7); EOS % 5.5 % (1.5-5.0); GRAN # 5.24 (1.4-6.5); GRAN % 59.1 % (50.0-68.0); HEMOGLOBIN 11.2 g/dL (14.0-18.0); LYMPH # 2.2 (1.2-3.4); LYMPH % 24.4 % (22.0-35.0); MEAN CELL VOLUME 81.6 fl (80.0-105.0); MEAN CORPUSCULAR HEMOGLOBIN 26.7 pg (25.0-35.0); MEAN CORPUSCULAR HGB CONC 32.7 g/dl (31.0-37.0); MONO # 0.9 (0.1-0.6); MONO % 10.5 % (1.0-6.0); RBC 4.19 10^6/uL (3.5-6.1); RED CELL DISTRIBUTION WIDTH 15.3 % (11.5-14.5); WHITE BLOOD COUNT 8.9 10^3/ul (4.5-11.0)
--- NOTE | 2018-02-14 06:53 | CP.PCM.PN ---
Subjective - Date & Time of Evaluation Date of Evaluation: 02/14/18 Time of Evaluation: 06:20 - Subjective Subjective: Awake,lying in bed, no distress,denies chest pain,denies shortness of breath Reason for consultation and follow up:Cardiac follow up, near syncope, positive orthostatic hypotension, coronary artery disease post CABG 2016, on Eliquis for history of DVT, diabetes mellitus Seen and examined by me and Dr. Santillan Objective - Vital Signs/Intake and Output Vital Signs (last 24 hours): Temp Pulse Resp BP Pulse Ox 98.0 F 77 20 120/78 98 02/13/18 18:00 02/13/18 18:19 02/13/18 18:00 02/13/18 18:19 02/13/18 18:00 Intake and Output: 02/13/18 02/14/18 18:59 06:59 Intake Total 420 480 Output Total 950 1000 Balance -530 -520 - Medications Medications: Current Medications Acetaminophen (Tylenol 325mg Tab) 650 mg PO Q6H PRN PRN Reason: Fever >100.4 F Last Admin: 02/13/18 08:00 Dose: 650 mg Acetaminophen (Tylenol 325mg Tab) 650 mg PO Q4H PRN PRN Reason: Pain, Mild (1-3) Last Admin: 02/14/18 05:24 Dose: 650 mg Acetylcysteine (Acetylcysteine 20%) 4 ml IH BIDRESP [facility] Last Admin: 02/13/18 20:28 Dose: 4 ml Apixaban (Eliquis) 5 mg PO BID [facility] PRN Reason: Protocol Last Admin: 02/13/18 18:19 Dose: 5 mg Atorvastatin Calcium (Lipitor) 10 mg PO DIN [facility] Last Admin: 02/13/18 18:19 Dose: 10 mg Doxycycline Hyclate (Doryx) 100 mg PO Q12 [facility] PRN Reason: Protocol Last Admin: 02/13/18 22:00 Dose: 100 mg Ergocalciferol (Drisdol 50,000 Intl Units Cap) 1 cap PO Q7D [facility] Last Admin: 02/13/18 15:44 Dose: 1 cap Ferrous Gluconate (Fergon) 324 mg PO TID [facility] Last Admin: 02/13/18 18:19 Dose: 324 mg Gabapentin (Neurontin) 300 mg PO QID [facility] PRN Reason: Protocol Last Admin: 02/13/18 21:59 Dose: 300 mg Cefepime HCl (Maxipime 2gm) 2 gm in 100 mls @ 100 mls/hr IVPB Q12 [facility] PRN Reason: Protocol Stop: 02/17/18 10:01 Last Admin: 02/13/18 22:00 Dose: 100 mls/hr Vancomycin HCl (Vancomycin 1gm) 1 gm in 250 mls @ 167 mls/hr IVPB Q12H [facility] PRN Reason: Protocol Last Admin: 02/14/18 00:33 Dose: 167 mls/hr Insulin Human Regular (Humulin R Low) 0 units SC ACHS [facility] PRN Reason: Protocol Last Admin: 02/13/18 22:06 Dose: Not Given Levalbuterol HCl (Xopenex) 0.63 mg IH [id number] PRN PRN Reason: Shortness of Breath Last Admin: 02/13/18 05:45 Dose: 0.63 mg Levalbuterol HCl (Xopenex) 0.63 mg IH [id number] [facility] Last Admin: 02/14/18 01:45 Dose: 0.63 mg Metoprolol Succinate (Toprol Xl) 25 mg PO BID [facility] Last Admin: 02/13/18 18:19 Dose: 25 mg Pantoprazole Sodium (Protonix Ec Tab) 40 mg PO DAILY [facility] Last Admin: 02/13/18 09:18 Dose: 40 mg Tamsulosin HCl (Flomax) 0.4 mg PO DAILY [facility] Last Admin: 02/13/18 09:17 Dose: 0.4 mg Vitamin B Complex/Vit C/Folic Acid (Nephro-Usha) 1 tab PO 0800 [facility] - Labs Labs: 02/13/18 06:30 02/13/18 06:30 PT 14.8 SECONDS (9.4-12.5) H 02/11/18 12:00 INR 1.28 (0.93-1.08) H 02/11/18 12:00 APTT 29.1 Seconds (25.1-36.5) 02/11/18 12:00 - Constitutional Appears: No Acute Distress - Head Exam Head Exam: NORMOCEPHALIC - Eye Exam Eye Exam: Normal appearance - ENT Exam ENT Exam: Mucous Membranes Moist - Respiratory Exam Respiratory Exam: Clear to Ausculation Bilateral, NORMAL BREATHING PATTERN - Cardiovascular Exam Cardiovascular Exam: +S1, +S2 - GI/Abdominal Exam GI & Abdominal Exam: Soft, Normal Bowel Sounds - Extremities Exam Extremities Exam: Normal Capillary Refill Additional comments: leg weakness - Neurological Exam Neurological Exam: Alert, Awake, Oriented x3 - Psychiatric Exam Psychiatric exam: Normal Affect, Normal Mood - Skin Skin Exam: Intact, Normal Color, Warm Assessment and Plan - Assessment and Plan (Free Text) Assessment: A 72 year old male who came in to the ER due to near syncope. History of coronary artery disease post CABG 2015, DVT-on Eliquis, diabetes mellitus, hypertension,BPH, peripheral neuropathy,hypercholesterolemia, on this admission positive for orthostatic hypotension. Admitted due to feeling weak. Plan: Stable blood pressure and heart rate Cardiac status stable Off telemetry ID on consult and work up in progress On Eliquis 5 mg BID,Lipitor 10 mg daily,Toprol 25 mg BID Flomax 0.4 mg daily Continue current treatment continue current medications Will follow up Plan and treatment discussed with Dr. Santillan
[2018-02-14 07:28] LABS: ALB/GLOB RATIO 1.1 (1.1-1.8); ALBUMIN 3.5 g/dL (3.0-4.8); ALT/SGPT 23 U/L (7-56); AST/SGOT 41 U/L (17-59); BLOOD UREA NITROGEN 12 mg/dL (7-21); CALCIUM 8.2 mg/dL (8.4-10.5); GFR AFRICAN-AMERICAN > 60; GFR NON-AFRICAN AMERICAN > 60
[2018-02-14] MEDS: Acetylcysteine 20% Inhal Soln (4ml) IH SCH ×2 (08:09→20:14)
[2018-02-14] MEDS: Insulin Reg-LOW-Coverage SC SCH ×4 (08:35→23:20)
[2018-02-14] MEDS: Pantoprazole 40 mg EC Tab PO SCH (09:35)
[2018-02-14] MEDS: Metoprolol Succinate 25 mg XL Tab PO SCH ×2 (09:35→17:33)
[2018-02-14] MEDS: Multivitamin Vitamin B Complex (Nephro-Vite) Tab PO SCH (09:35)
[2018-02-14] MEDS: Cefepime IV 2 gm in NS 2 GM/100 ML BAG IVPB SCH ×2 (09:36→21:58)
[2018-02-14] MEDS ORDERED: Potassium Chloride 20 mEq ER Tab PO ONE (10:59)
--- NOTE | 2018-02-14 11:14 | CP.PCM.PN ---
Subjective - Date & Time of Evaluation Date of Evaluation: 02/14/18 Time of Evaluation: 11:13 - Subjective Subjective: Nephrology Consultation Note: Assessment: Stable sepsis with lactic acidosis ? source asthmatic bronchitis Diabetic chronic Kidney Disease (E11.22) Hypertensive Chronic Kidney Disease (I12.9) Chronic Kidney Disease (N18.3) Stage 3 without proteinuria (R80.9) stable Anemia, CAD s/p CABG, vit d insuff urine retention ? BPH Plan No acute need for renal replacement therapy at this time. renal function stable BP on low side. Patient not on ACEI/ARB due to VANDANA and low BP Monitor Input/Output, daily weights and renal function with basic metabolic panel continue with flomax 0.4 mg per day will give lasix 20 mg oral x 2 days started iron supplements, MVI and Vit D Check urine analysis, spot protein/creatinine and albumin/creatinine ratio Dose meds/antibiotics for GFR>50. Avoid nephrotoxins/NSAIDs Glycemic control Further work up/management as per primary team Thanks for allowing me to participate in care of your patient. Will follow patient with you. Please call if any Qs. had d/w son and team Dr Daniel Fields Office: [phone] Chief Complaint; cough HPI: Pt is a 72 M with hx of diabetes Mellitus ( years), hypertension (years), CAD s/p CABG 2 years ago presented with complaints of back pain and fever, being worked up for sepsis, lactic acidosis, also seen by neuro due to leg weakness. pt not aware about CKD in past. serum cr 1.3 in aug 2017 pt also had urine retention s/p barboza Denies OTC/herbal meds or NSAIDs had recent iodinated contrast exposure. No obvious episodes of low BP although SBP 100 range ROS: staff helped in mongolian interpretation Cardiovascular: No chest pain. Pulmonary: No shortness of breath but has cough and wheezing Gastrointestinal: denies abdominal pain No nausea. No vomiting. Genitourinary: No pain while urinating. Denies blood in urine. reported thin stream prior All other negative except as mentioned in HPI Physical Examination: General Appearance: Comfortable, in no acute respiratory distress, co-operative . Vitals reviewed and noted as below Head; Atraumatic, normocephalic ENT: no ulcers no thrush. Tongue is midline. Oropharynx: no rash or ulcers. EYES: Pupils are equal, round and reactive to light accommodation. Eye muscles and extraocular movement intact. Sclera is anicteric. Neck; supple no lymphadenopathy, no thyromegaly or bruit Lungs: Normal respiratory rate/effort. Breath sounds bilateral equal and has basal crackles with occasional wheeze Heart: Normal rate. s1s2 normal. No rub or gallop. Extremities: no edema. No varicose veins Neurological: Patient is alert, awake and oriented to person, place and time. Skin: Warm and dry. Normal turgor. No rash. Palpitation: Normal elasticity for age Abdomen: Abdomen is soft. Bowel sounds +. There is mild abdominal tenderness with distension, no guarding/rigidity no organomegaly Psych: normal insight and normal affect/mood MSK: no joint tenderness or swelling. Digits and nails normal, no deformity : kidney or bladder not palpable. has barboza Labs/imaging reviewed. Past medical history, past surgical history, family history, social history, allergy reviewed and noted as below Family hx: no hx of CKD. Rest non-contributory work up: lactic acid 5.4 UA no protein CTA chest/MRI spine/brain: reviewed and unremarkable Objective - Vital Signs/Intake and Output Vital Signs (last 24 hours): Temp Pulse Resp BP Pulse Ox 98.5 F 94 H 20 119/71 93 L 02/14/18 06:00 02/14/18 06:00 02/14/18 06:00 02/14/18 06:00 02/14/18 06:00 Intake and Output: 02/14/18 02/14/18 06:59 18:59 Intake Total 480 120 Output Total 1000 850 Balance -520 -730 - Medications Medications: Current Medications Acetaminophen (Tylenol 325mg Tab) 650 mg PO Q6H PRN PRN Reason: Fever >100.4 F Last Admin: 02/13/18 08:00 Dose: 650 mg Acetaminophen (Tylenol 325mg Tab) 650 mg PO Q4H PRN PRN Reason: Pain, Mild (1-3) Last Admin: 02/14/18 05:24 Dose: 650 mg Acetylcysteine (Acetylcysteine 20%) 4 ml IH BIDRESP [facility] Last Admin: 02/14/18 08:09 Dose: 4 ml Apixaban (Eliquis) 5 mg PO BID [facility] PRN Reason: Protocol Last Admin: 02/14/18 09:35 Dose: 5 mg Atorvastatin Calcium (Lipitor) 10 mg PO DIN [facility] Last Admin: 02/13/18 18:19 Dose: 10 mg Doxycycline Hyclate (Doryx) 100 mg PO Q12 [facility] PRN Reason: Protocol Last Admin: 02/14/18 09:35 Dose: 100 mg Ergocalciferol (Drisdol 50,000 Intl Units Cap) 1 cap PO Q7D [facility] Last Admin: 02/13/18 15:44 Dose: 1 cap Ferrous Gluconate (Fergon) 324 mg PO TID [facility] Last Admin: 02/14/18 09:35 Dose: 324 mg Furosemide (Lasix) 20 mg PO DAILY [facility] Stop: 02/15/18 10:01 Gabapentin (Neurontin) 300 mg PO QID [facility] PRN Reason: Protocol Last Admin: 02/14/18 09:35 Dose: 300 mg Cefepime HCl (Maxipime 2gm) 2 gm in 100 mls @ 100 mls/hr IVPB Q12 [facility] PRN Reason: Protocol Stop: 02/17/18 10:01 Last Admin: 02/14/18 09:36 Dose: 100 mls/hr Vancomycin HCl (Vancomycin 1gm) 1 gm in 250 mls @ 167 mls/hr IVPB Q12H [facility] PRN Reason: Protocol Last Admin: 02/14/18 00:33 Dose: 167 mls/hr Insulin Human Regular (Humulin R Low) 0 units SC ACHS [facility] PRN Reason: Protocol Last Admin: 02/14/18 08:35 Dose: 2 units Levalbuterol HCl (Xopenex) 0.63 mg IH [id number] PRN PRN Reason: Shortness of Breath Last Admin: 02/13/18 05:45 Dose: 0.63 mg Levalbuterol HCl (Xopenex) 0.63 mg IH [id number] [facility] Last Admin: 02/14/18 08:09 Dose: 0.63 mg Metoprolol Succinate (Toprol Xl) 25 mg PO BID [facility] Last Admin: 02/14/18 09:35 Dose: 25 mg Pantoprazole Sodium (Protonix Ec Tab) 40 mg PO DAILY [facility] Last Admin: 02/14/18 09:35 Dose: 40 mg Tamsulosin HCl (Flomax) 0.4 mg PO DAILY [facility] Last Admin: 02/14/18 09:35 Dose: 0.4 mg Vitamin B Complex/Vit C/Folic Acid (Nephro-Usha) 1 tab PO 0800 [facility] Last Admin: 02/14/18 09:35 Dose: 1 tab - Labs Labs: 02/14/18 06:15 02/14/18 06:15 PT 14.8 SECONDS (9.4-12.5) H 02/11/18 12:00 INR 1.28 (0.93-1.08) H 02/11/18 12:00 APTT 29.1 Seconds (25.1-36.5) 02/11/18 12:00
--- NOTE | 2018-02-14 14:11 | PN ---
DATE: 02/13/2018 SUBJECTIVE: Patient is comfortable, sitting in the bed, still has a Spears in. He does have some cough; otherwise, negative respiratory distress. No nausea, no vomiting, tolerating diet and afebrile. PHYSICAL EXAMINATION: VITAL SIGNS: Temperature 98, heart rate 77, blood pressure 120/78, respirations 20, satting 98%. HEAD AND NECK: Normal. No JVD. No thyromegaly. CHEST: Bilateral coarse rhonchi. CARDIAC: First and second sound normal, regular. ABDOMEN: Soft, nontender. EXTREMITIES: No edema. NEUROLOGIC: Normal. LABORATORY DATA: Shows white count 8.1, hemoglobin 11.7, hematocrit 34.6, platelets 220. Chemistry shows sodium 141, potassium 4.1, chloride 107, bicarb 24, BUN 14, creatinine 1.2. Patient's iron saturation is low, iron deficiency anemia. Patient also has calcium 7.9, blood sugar 244. IMPRESSION AND PLAN: 1. Fever, unclear etiology, systemic inflammatory response syndrome; so far sources are negative, cultures negative, currently on IV doxycycline, vancomycin and Merrem. Patient is clinically better, although he was presented with high lactic acid, which improved significantly with IV hydration and antibiotics. Clinically better. We will continue current management. 2. Cough, probably bronchitis, possible viral bronchitis, could be source unclear or versus bacterial. However, the patient had been doing well, continue Xopenex four times a day. IV fluids, which I agree. I agree with that, continue current treatment. 3. Ischemic cardiomyopathy status post bypass surgery; chronic atrial fibrillation, continue Eliquis, continue Lipitor, continue metoprolol 25 b.i.d., continue current therapy. We will follow up clinically. 4. Generalized weakness, continue physical therapy. Patient will start doing physical therapy, we will discontinue the Spears catheter, continue Flomax and we will follow up clinically. Michael Milligan MD
--- NOTE | 2018-02-14 16:44 | CP.PCM.PN ---
Subjective - Date & Time of Evaluation Date of Evaluation: 02/14/18 Time of Evaluation: 10:00 - Subjective Subjective: Patient is slowly regaining his lower extremity strength back, no fevers, no urinary or bowel incontinence. Objective - Vital Signs/Intake and Output Vital Signs (last 24 hours): Temp Pulse Resp BP Pulse Ox 98.0 F 77 20 120/78 98 02/13/18 18:00 02/13/18 18:19 02/13/18 18:00 02/13/18 18:19 02/13/18 18:00 Intake and Output: 02/14/18 02/14/18 06:59 18:59 Intake Total 480 Output Total 1000 Balance -520 - Medications Medications: Current Medications Acetaminophen (Tylenol 325mg Tab) 650 mg PO Q6H PRN PRN Reason: Fever >100.4 F Last Admin: 02/13/18 08:00 Dose: 650 mg Acetaminophen (Tylenol 325mg Tab) 650 mg PO Q4H PRN PRN Reason: Pain, Mild (1-3) Last Admin: 02/14/18 05:24 Dose: 650 mg Acetylcysteine (Acetylcysteine 20%) 4 ml IH BIDRESP [facility] Last Admin: 02/13/18 20:28 Dose: 4 ml Apixaban (Eliquis) 5 mg PO BID [facility] PRN Reason: Protocol Last Admin: 02/13/18 18:19 Dose: 5 mg Atorvastatin Calcium (Lipitor) 10 mg PO DIN [facility] Last Admin: 02/13/18 18:19 Dose: 10 mg Doxycycline Hyclate (Doryx) 100 mg PO Q12 [facility] PRN Reason: Protocol Last Admin: 02/13/18 22:00 Dose: 100 mg Ergocalciferol (Drisdol 50,000 Intl Units Cap) 1 cap PO Q7D [facility] Last Admin: 02/13/18 15:44 Dose: 1 cap Ferrous Gluconate (Fergon) 324 mg PO TID [facility] Last Admin: 02/13/18 18:19 Dose: 324 mg Gabapentin (Neurontin) 300 mg PO QID [facility] PRN Reason: Protocol Last Admin: 02/13/18 21:59 Dose: 300 mg Cefepime HCl (Maxipime 2gm) 2 gm in 100 mls @ 100 mls/hr IVPB Q12 [facility] PRN Reason: Protocol Stop: 02/17/18 10:01 Last Admin: 02/13/18 22:00 Dose: 100 mls/hr Vancomycin HCl (Vancomycin 1gm) 1 gm in 250 mls @ 167 mls/hr IVPB Q12H [facility] PRN Reason: Protocol Last Admin: 02/14/18 00:33 Dose: 167 mls/hr Insulin Human Regular (Humulin R Low) 0 units SC ACHS [facility] PRN Reason: Protocol Last Admin: 02/13/18 22:06 Dose: Not Given Levalbuterol HCl (Xopenex) 0.63 mg IH [id number] PRN PRN Reason: Shortness of Breath Last Admin: 02/13/18 05:45 Dose: 0.63 mg Levalbuterol HCl (Xopenex) 0.63 mg IH [id number] [facility] Last Admin: 02/14/18 01:45 Dose: 0.63 mg Metoprolol Succinate (Toprol Xl) 25 mg PO BID [facility] Last Admin: 02/13/18 18:19 Dose: 25 mg Pantoprazole Sodium (Protonix Ec Tab) 40 mg PO DAILY [facility] Last Admin: 02/13/18 09:18 Dose: 40 mg Tamsulosin HCl (Flomax) 0.4 mg PO DAILY [facility] Last Admin: 02/13/18 09:17 Dose: 0.4 mg Vitamin B Complex/Vit C/Folic Acid (Nephro-Usha) 1 tab PO 0800 [facility] - Labs Labs: 02/13/18 06:30 02/13/18 06:30 PT 14.8 SECONDS (9.4-12.5) H 02/11/18 12:00 INR 1.28 (0.93-1.08) H 02/11/18 12:00 APTT 29.1 Seconds (25.1-36.5) 02/11/18 12:00 - Constitutional Appears: Non-toxic, Chronically Ill - Head Exam Head Exam: NORMAL INSPECTION - Neck Exam Neck Exam: absent: Meningismus - Respiratory Exam Respiratory Exam: Decreased Breath Sounds - Cardiovascular Exam Cardiovascular Exam: +S1, +S2 - GI/Abdominal Exam GI & Abdominal Exam: Soft. absent: Tenderness Assessment and Plan - Assessment and Plan (Free Text) Plan: Assessment Systemic Inflammatory response syndrome R/O due to TIA, R/O demyelinating disease, R/O viral illness CAD S/P CABG HTN DM Plan Reviewed MRI brain and spine - no abnormalities noted - may benefit from lumbar puncture by Neurology and we have discussed this with Dr. Knox continue Vancomycin, Cefepime and Doxycycline for now; blood cx are negative will check EBV, CMV tests, Lyme titers, Erlichia tests will continue to monitor clinically
[2018-02-15] MEDS: Vancomycin 1gm in NS 250ml 1 GM/250 ML BAG IVPB SCH ×2 (00:13→11:37)
[2018-02-15] MEDS: Levalbuterol 0.63 MG/3 ML Inhal Soln UD IH SCH ×3 (01:03→13:49)
--- NOTE | 2018-02-15 07:02 | CP.PCM.PN ---
Subjective - Date & Time of Evaluation Date of Evaluation: 02/15/18 Time of Evaluation: 06:20 - Subjective Subjective: Lying in bed, easily awaken, no distress,denies chest pain,denies shortness of breath Reason for consultation and follow up:Cardiac follow up, near syncope, positive orthostatic hypotension, coronary artery disease post CABG 2016, on Eliquis for history of DVT, diabetes mellitus Seen and examined by me and Dr. Santillan Objective - Vital Signs/Intake and Output Vital Signs (last 24 hours): Temp Pulse Resp BP Pulse Ox 98.5 F 94 H 20 122/64 93 L 02/14/18 06:00 02/14/18 06:00 02/14/18 06:00 02/14/18 13:11 02/14/18 06:00 Intake and Output: 02/15/18 02/15/18 06:59 18:59 Intake Total 120 Balance 120 - Medications Medications: Current Medications Acetaminophen (Tylenol 325mg Tab) 650 mg PO Q6H PRN PRN Reason: Fever >100.4 F Last Admin: 02/13/18 08:00 Dose: 650 mg Acetaminophen (Tylenol 325mg Tab) 650 mg PO Q4H PRN PRN Reason: Pain, Mild (1-3) Last Admin: 02/14/18 17:34 Dose: 650 mg Acetylcysteine (Acetylcysteine 20%) 4 ml IH BIDRESP [facility] Last Admin: 02/14/18 20:14 Dose: 4 ml Apixaban (Eliquis) 5 mg PO BID [facility] PRN Reason: Protocol Last Admin: 02/14/18 17:33 Dose: 5 mg Atorvastatin Calcium (Lipitor) 10 mg PO DIN [facility] Last Admin: 02/14/18 17:33 Dose: 10 mg Doxycycline Hyclate (Doryx) 100 mg PO Q12 [facility] PRN Reason: Protocol Last Admin: 02/14/18 21:59 Dose: 100 mg Ergocalciferol (Drisdol 50,000 Intl Units Cap) 1 cap PO Q7D [facility] Last Admin: 02/13/18 15:44 Dose: 1 cap Ferrous Gluconate (Fergon) 324 mg PO TID [facility] Last Admin: 02/14/18 17:34 Dose: 324 mg Furosemide (Lasix) 20 mg PO DAILY [facility] Stop: 02/15/18 10:01 Last Admin: 02/14/18 13:11 Dose: 20 mg Gabapentin (Neurontin) 300 mg PO QID [facility] PRN Reason: Protocol Last Admin: 02/14/18 21:59 Dose: 300 mg Cefepime HCl (Maxipime 2gm) 2 gm in 100 mls @ 100 mls/hr IVPB Q12 [facility] PRN Reason: Protocol Stop: 02/17/18 10:01 Last Admin: 02/14/18 21:58 Dose: 100 mls/hr Vancomycin HCl (Vancomycin 1gm) 1 gm in 250 mls @ 167 mls/hr IVPB Q12H [facility] PRN Reason: Protocol Last Admin: 02/15/18 00:13 Dose: 167 mls/hr Insulin Human Regular (Humulin R Low) 0 units SC ACHS [facility] PRN Reason: Protocol Last Admin: 02/14/18 23:20 Dose: Not Given Levalbuterol HCl (Xopenex) 0.63 mg IH [id number] PRN PRN Reason: Shortness of Breath Last Admin: 02/13/18 05:45 Dose: 0.63 mg Levalbuterol HCl (Xopenex) 0.63 mg IH [id number] [facility] Last Admin: 02/15/18 01:03 Dose: 0.63 mg Metoprolol Succinate (Toprol Xl) 25 mg PO BID [facility] Last Admin: 02/14/18 17:33 Dose: 25 mg Pantoprazole Sodium (Protonix Ec Tab) 40 mg PO DAILY [facility] Last Admin: 02/14/18 09:35 Dose: 40 mg Tamsulosin HCl (Flomax) 0.4 mg PO DAILY [facility] Last Admin: 02/14/18 09:35 Dose: 0.4 mg Vitamin B Complex/Vit C/Folic Acid (Nephro-Usha) 1 tab PO 0800 [facility] Last Admin: 02/14/18 09:35 Dose: 1 tab - Labs Labs: 02/14/18 06:15 02/14/18 06:15 PT 14.8 SECONDS (9.4-12.5) H 02/11/18 12:00 INR 1.28 (0.93-1.08) H 02/11/18 12:00 APTT 29.1 Seconds (25.1-36.5) 02/11/18 12:00 - Constitutional Appears: No Acute Distress - Head Exam Head Exam: NORMOCEPHALIC - Eye Exam Eye Exam: Normal appearance - ENT Exam ENT Exam: Mucous Membranes Moist - Respiratory Exam Respiratory Exam: Clear to Ausculation Bilateral, NORMAL BREATHING PATTERN - Cardiovascular Exam Cardiovascular Exam: +S1, +S2 - GI/Abdominal Exam GI & Abdominal Exam: Soft, Normal Bowel Sounds - Extremities Exam Extremities Exam: Normal Capillary Refill - Neurological Exam Neurological Exam: Alert, Awake, Oriented x3 - Psychiatric Exam Psychiatric exam: Normal Affect, Normal Mood - Skin Skin Exam: Intact, Normal Color, Warm Assessment and Plan - Assessment and Plan (Free Text) Assessment: A 72 year old male who came in to the ER due to near syncope. History of coronary artery disease post CABG 2016, DVT-on Eliquis, diabetes mellitus, hypertension,BPH, peripheral neuropathy,hypercholesterolemia, on this admission positive for orthostatic hypotension. Admitted due to feeling weak. Plan: Stable blood pressure and heart rate Cardiac status stable Stable blood pressure and heart rate ID and Neuro on consult and work up in progress On Eliquis 5 mg BID,Lipitor 10 mg daily,Toprol 25 mg BID Flomax 0.4 mg daily Control glucose Continue current treatment continue current medications Will follow up Plan and treatment discussed with Dr. Snatillan
[2018-02-15 07:33] VITALS: BP 126/72; PULSE 96; TEMP 99; O2SAT 94
[2018-02-15] MEDS: Acetylcysteine 20% Inhal Soln (4ml) IH SCH (08:09)
[2018-02-15] MEDS: Insulin Reg-LOW-Coverage SC SCH ×2 (09:37→11:56)
[2018-02-15] MEDS: Cefepime IV 2 gm in NS 2 GM/100 ML BAG IVPB SCH (09:39)
[2018-02-15] MEDS: Multivitamin Vitamin B Complex (Nephro-Vite) Tab PO SCH (09:40)
[2018-02-15] MEDS: Metoprolol Succinate 25 mg XL Tab PO SCH (09:40)
[2018-02-15] MEDS: Pantoprazole 40 mg EC Tab PO SCH (09:40)
--- NOTE | 2018-02-15 12:31 | CP.PCM.PN ---
Subjective - Date & Time of Evaluation Date of Evaluation: 02/15/18 Time of Evaluation: 11:05 - Subjective Subjective: Patient is slowly regaining strength in his lower extremities, no fevers, not in distress. Objective - Vital Signs/Intake and Output Vital Signs (last 24 hours): Temp Pulse Resp BP Pulse Ox 99.0 F 96 H 20 126/72 94 L 02/15/18 06:00 02/15/18 06:00 02/15/18 06:00 02/15/18 06:00 02/15/18 06:00 Intake and Output: 02/15/18 02/15/18 06:59 18:59 Intake Total 120 Balance 120 - Medications Medications: Current Medications Acetaminophen (Tylenol 325mg Tab) 650 mg PO Q6H PRN PRN Reason: Fever >100.4 F Last Admin: 02/13/18 08:00 Dose: 650 mg Acetaminophen (Tylenol 325mg Tab) 650 mg PO Q4H PRN PRN Reason: Pain, Mild (1-3) Last Admin: 02/14/18 17:34 Dose: 650 mg Acetylcysteine (Acetylcysteine 20%) 4 ml IH BIDRESP [facility] Last Admin: 02/15/18 08:09 Dose: 4 ml Apixaban (Eliquis) 5 mg PO BID [facility] PRN Reason: Protocol Last Admin: 02/14/18 17:33 Dose: 5 mg Atorvastatin Calcium (Lipitor) 10 mg PO DIN [facility] Last Admin: 02/14/18 17:33 Dose: 10 mg Doxycycline Hyclate (Doryx) 100 mg PO Q12 [facility] PRN Reason: Protocol Last Admin: 02/14/18 21:59 Dose: 100 mg Ergocalciferol (Drisdol 50,000 Intl Units Cap) 1 cap PO Q7D [facility] Last Admin: 02/13/18 15:44 Dose: 1 cap Ferrous Gluconate (Fergon) 324 mg PO TID [facility] Last Admin: 02/14/18 17:34 Dose: 324 mg Furosemide (Lasix) 20 mg PO DAILY [facility] Stop: 02/15/18 10:01 Last Admin: 02/14/18 13:11 Dose: 20 mg Gabapentin (Neurontin) 300 mg PO QID [facility] PRN Reason: Protocol Last Admin: 02/14/18 21:59 Dose: 300 mg Cefepime HCl (Maxipime 2gm) 2 gm in 100 mls @ 100 mls/hr IVPB Q12 [facility] PRN Reason: Protocol Stop: 02/17/18 10:01 Last Admin: 02/14/18 21:58 Dose: 100 mls/hr Vancomycin HCl (Vancomycin 1gm) 1 gm in 250 mls @ 167 mls/hr IVPB Q12H [facility] PRN Reason: Protocol Last Admin: 02/15/18 00:13 Dose: 167 mls/hr Insulin Human Regular (Humulin R Low) 0 units SC ACHS [facility] PRN Reason: Protocol Last Admin: 02/14/18 23:20 Dose: Not Given Levalbuterol HCl (Xopenex) 0.63 mg IH [id number] PRN PRN Reason: Shortness of Breath Last Admin: 02/13/18 05:45 Dose: 0.63 mg Levalbuterol HCl (Xopenex) 0.63 mg IH [id number] [facility] Last Admin: 02/15/18 08:09 Dose: 0.63 mg Metoprolol Succinate (Toprol Xl) 25 mg PO BID [facility] Last Admin: 02/14/18 17:33 Dose: 25 mg Pantoprazole Sodium (Protonix Ec Tab) 40 mg PO DAILY [facility] Last Admin: 02/14/18 09:35 Dose: 40 mg Tamsulosin HCl (Flomax) 0.4 mg PO DAILY [facility] Last Admin: 02/14/18 09:35 Dose: 0.4 mg Vitamin B Complex/Vit C/Folic Acid (Nephro-Usha) 1 tab PO 0800 [facility] Last Admin: 02/14/18 09:35 Dose: 1 tab - Labs Labs: 02/14/18 06:15 02/14/18 06:15 PT 14.8 SECONDS (9.4-12.5) H 02/11/18 12:00 INR 1.28 (0.93-1.08) H 02/11/18 12:00 APTT 29.1 Seconds (25.1-36.5) 02/11/18 12:00 - Constitutional Appears: Non-toxic, Chronically Ill - Head Exam Head Exam: NORMAL INSPECTION - ENT Exam ENT Exam: Mucous Membranes Moist - Neck Exam Neck Exam: absent: Meningismus - Respiratory Exam Respiratory Exam: Decreased Breath Sounds - Cardiovascular Exam Cardiovascular Exam: +S1, +S2 - GI/Abdominal Exam GI & Abdominal Exam: Soft. absent: Tenderness - Neurological Exam Additional comments: 4+/5 strength on lower extremities Assessment and Plan - Assessment and Plan (Free Text) Plan: Assessment Systemic Inflammatory response syndrome R/O due to TIA, R/O demyelinating disease, R/O viral illness CAD S/P CABG HTN DM Plan Reviewed MRI brain and spine - no abnormalities noted - may benefit from lumbar puncture by Neurology and we have discussed this with Dr. Knox cultures have been negative - will d/c Vancomycin, Cefepime and continue Doxycycline for now; blood cx are negative will check EBV, CMV tests, Lyme titers, Erlichia tests will continue to monitor clinically
--- NOTE | 2018-02-15 15:36 | PN ---
DATE: 02/14/2018 SUBJECTIVE: The patient is sitting on the bed, comfortable, no distress. He feels febrile, but his temperature is 98, max temp is 99. No chest pain. No short of breath. Mild cough. PHYSICAL EXAMINATION VITAL SIGNS: Temperature 98.5, heart rate 94, blood pressure 119/71, respiration 20, saturation 94% on room air. HEAD AND NECK: Normal. No JVD. No thyromegaly. CHEST: Clear bilaterally. CARDIAC: First sound and second sound normal. ABDOMEN: Soft, nontender. EXTREMITIES: No edema. NEUROLOGIC: Normal. LABORATORY DATA: White count 8.9, hemoglobin 11.2, hematocrit 34.2, platelets 271. Sodium 142, potassium 3.7, chloride 105, bicarb 26, BUN 12, creatinine 1.1. Blood sugars 236, calcium 8.2, phosphorus 2.9, magnesium 1.9. Liver function test is normal. Total protein 6.8, albumin 3.5. Bronson cultures, urine and blood is negative. IMPRESSION AND PLAN: 1. Systemic inflammatory syndrome, etiology unclear. Currently, we will continue IV antibiotic. Serology for ehrlichiosis, Lyme disease. Other etiologies has been included and still pending. Continue vancomycin, meropenem and doxycycline. 2. Coronary artery disease, status post surgery. Ejection fraction is decreased. Patient is stable. No heart failure. Continue current medications including metoprolol 25 mg b.i.d. and Eliquis 5 mg b.i.d. due to paroxysmal atrial fibrillation. 3. Diabetes. Continue insulin. We are going to add metformin for him and we will see how he do that. Currently, he is on insulin coverage. 4. Anemia deficiency, prostate enlargement, paroxysmal atrial fibrillation, bronchitis. Continue Mucomyst. Continue Xopenex. Continue physical therapy for gait training, seems doing better. Plan is to continue IV antibiotic for a few more days. Michael Milligan MD
[2018-02-17 02:30] LABS: SOURCE: PLASMA
--- NOTE | 2018-02-17 02:50 | DS ---
HISTORY OF PRESENT ILLNESS: A 72-year-old male, admitted with fever of 101.6. The patient was admitted with fever. He has sustained a fall. With that fever, found to have high lactate. He was given IV Ringer's lactate. Was seen by Infectious Disease doctor. The patient was maintained on telemetry for cardiac evaluations. He did have echocardiogram, which shows moderate decreased LV function. Seen by ID consult. Panculture was negative, blood, urine. Also had a chest CT, which was negative. An MRI of the spine, lumbosacral and thoracic spine, which was negative for any mass lesions or any abscess. The patient also had MRI of the brain, which was negative. The patient was seen by Neurology consult, Dr. Knox. He is stable now, has no new complaints. IV antibiotic was maintained, Zyvox and meropenem and doxycycline. The patient was hemodynamically stable. He has no evidence of any infection so far. He did have negative beta Streptococcus. He is immune to herpes zoster. Lopez-Murillo test and IgG were high. RPR was negative. The patient was stable and will be discharged home. He finished antibiotics almost 7 days. We will continue doxycycline for another 7 days as per ID consultation. The patient on discharge is stable. PHYSICAL EXAMINATION: VITAL SIGNS: Temperature in the 98-99 range; heart rate 96; blood pressure 126/72; respirations 20; saturation 94% on room air. HEAD AND NECK: Normal. No JVD. No thyromegaly. CHEST: Clear bilateral. CARDIAC: First sound and second sound normal. ABDOMEN: Soft, nontender. EXTREMITIES: No edema. NEUROLOGIC: Normal. The patient advised to continue all his meds, mg b.i.d. for 1 week. DISCHARGE DIAGNOSES: 1. Systemic inflammatory response syndrome. 2. Metabolic acidosis. 3. Fever. 4. Generalized weakness. 5. Ischemic cardiomyopathy with moderate decreased left ventricular functions. 6. Leukocytosis. 7. Anemia. 8. Chronic atrial fibrillation, on Eliquis. 9. Diabetes. The patient advised to resume all his diabetic pills as before, back on Eliquis. Continue all other medications. Follow up in the office after completing antibiotics, 1 week. Discussed the case with the underwriting consultant. Michael Milligan MD [facility] # [id number]
== END 2018-02-15 18:12 | disposition home or self-care (01) | DRG 580 ==
LOC: ED 11:36 → ERH 18:26 → 2RSO 20:43 → 3RNO 02-13 09:01 → 2RSO 02-13 09:04 → 3RNO 02-13 16:32
PROVIDERS: ADMIT Internal Medicine; ATTEND Internal Medicine
PROC: 3E0F7GC Introduction of Other Therapeutic Substance into Respiratory Tract, Via Natural or Artificial Opening (ICD-10-PCS; principal; 2018-02-12)
DX: R50.9 Fever, unspecified (principal); R65.10 Systemic inflammatory response syndrome (SIRS) of non-infectious origin without acute organ dysfunction; E87.2 Acidosis; E11.22 Type 2 diabetes mellitus with diabetic chronic kidney disease; N18.3 Chronic kidney disease, stage 3 (moderate); E11.42 Type 2 diabetes mellitus with diabetic polyneuropathy; I65.01 Occlusion and stenosis of right vertebral artery; I48.0 Paroxysmal atrial fibrillation; I25.10 Atherosclerotic heart disease of native coronary artery without angina pectoris; I25.5 Ischemic cardiomyopathy; I48.2 Chronic atrial fibrillation; N40.1 Benign prostatic hyperplasia with lower urinary tract symptoms; R33.8 Other retention of urine; D64.9 Anemia, unspecified; E78.00 Pure hypercholesterolemia, unspecified; I12.9 Hypertensive chronic kidney disease with stage 1 through stage 4 chronic kidney disease, or unspecified chronic kidney disease; E78.5 Hyperlipidemia, unspecified; I27.20 Pulmonary hypertension, unspecified; I95.1 Orthostatic hypotension; Z79.01 Long term (current) use of anticoagulants; Z86.718 Personal history of other venous thrombosis and embolism; Z95.1 Presence of aortocoronary bypass graft

== ENCOUNTER 2018-09-11 00:27 | Observation (INO) | payer MEDICAID ==
--- NOTE | 2018-09-11 01:06 | ED PDOC ---
Arrival/HPI - General Time Seen by Provider: 09/11/18 00:30 Historian: Patient - History of Present Illness Narrative History of Present Illness (Text): 09/11/18 01:10 73 year old male, whose history includes CABG, paroxysmal afib on eliquis, diabetes, and hypertension, presents to the Emergency department with cough and shortness of breath. Patient states he is very congested and hurts when coughing. Patient states he feels generalized malaise. Patient informs his is also feeling sick. Patient denies taking the flu shot this year. Patient denies any chills, headache, dizziness, abdominal pain, nausea, vomiting, diarrhea, back pain, neck pain, or any other complaints. PMD: Dr. Milligan Time/Duration: Prior to Arrival, 24 hours Symptom Onset: Gradual Symptom Course: Unchanged Activities at Onset: Light Context: Home Past Medical History - Provider Review Nursing Documentation Reviewed: Yes - Past History Past History: No Previous - Infectious Disease Hx of Infectious Diseases: None - Past Medical History Past Medical History: No Previous - Cardiac Hx Cardiac Disorders: Yes Hx Hypertension: Yes - Pulmonary Hx Respiratory Disorders: No - Neurological Hx Neurological Disorder: No - HEENT Hx HEENT Disorder: No - Renal Hx Renal Disorder: No - Endocrine/Metabolic Hx Endocrine Disorders: Yes Other/Comment: diabetic - Hematological/Oncological Hx Blood Disorders: No - Integumentary Hx Dermatological Disorder: No - Musculoskeletal/Rheumatological Hx Musculoskeletal Disorders: No - Gastrointestinal Hx Gastrointestinal Disorders: No - Genitourinary/Gynecological Hx Genitourinary Disorders: No - Psychiatric Hx Psychophysiologic Disorder: No Hx Substance Use: No - Surgical History Hx Open Heart Surgery: Yes - Anesthesia Hx Anesthesia: Yes Family/Social History - Physician Review Nursing Documentation Reviewed: Yes Family/Social History: No Known Family HX Smoking Status: Never Smoked Hx Alcohol Use: No Hx Substance Use: No Allergies/Home Meds Allergies/Adverse Reactions: Allergies No Known Allergies Allergy (Verified 09/11/18 00:40) Home Medications: Home Meds Medication Instructions Recorded Confirmed Apixaban [Eliquis] 5 mg PO BID 08/03/17 08/03/17 Gabapentin [Neurontin] 300 mg PO QID 08/03/17 08/03/17 Metformin HCl [Glucophage] 1,000 mg PO BID 08/03/17 09/11/18 Metoprolol Succinate XL [Toprol XL] 25 mg PO BID 08/03/17 09/11/18 Pantoprazole [Protonix EC Tab] 40 mg PO DAILY 08/03/17 09/11/18 Repaglinide [Prandin] 2 mg PO TID 08/03/17 09/11/18 Simvastatin [Zocor] 20 mg PO DAILY 08/03/17 09/11/18 Dicyclomine [Bentyl] 1 tab PO BID 09/11/18 09/11/18 Finasteride [Proscar] 1 tab PO DAILY 09/11/18 09/11/18 Memantine HCl/Donepezil HCl 1 tab PO DAILY 09/11/18 09/11/18 [Namzaric Titration Pack] Midodrine HCl 2.5 mg PO BID 09/11/18 09/11/18 Pregabalin [Lyrica] 1 tab PO DAILY 09/11/18 09/11/18 SITagliptin [Januvia] 1 tab PO DAILY 09/11/18 09/11/18 Review of Systems - Physician Review All systems were reviewed & negative as marked: Yes - Review of Systems Constitutional: absent: Night Sweats Respiratory: SOB, Cough Cardiovascular: Chest Pain (congestion) Gastrointestinal: absent: Abdominal Pain, Diarrhea, Nausea, Vomiting Musculoskeletal: absent: Back Pain, Neck Pain Neurological: absent: Headache, Dizziness Physical Exam Vital Signs Reviewed: Yes Vital Signs Temp Pulse Resp BP Pulse Ox 09/11/18 00:36 98.9 F 119 H 21 119/74 100 Temperature: Afebrile Blood Pressure: Normal Pulse: Tachycardic Respiratory Rate: Normal Appearance: Positive for: Well-Appearing, Non-Toxic, Comfortable Pain Distress: None Mental Status: Positive for: Alert and Oriented X 3 - Systems Exam Head: Present: Atraumatic, Normocephalic Pupils: Present: PERRL Extroacular Muscles: Present: EOMI Conjunctiva: Present: Normal Ears: Present: NORMAL TM Mouth: Present: Moist Mucous Membranes Neck: Present: Normal Range of Motion Respiratory/Chest: Present: Good Air Exchange, Rhonchi. No: Respiratory Distress, Accessory Muscle Use Cardiovascular: Present: Regular Rate and Rhythm, Normal S1, S2. No: Murmurs Abdomen: No: Tenderness, Distention, Peritoneal Signs Back: Present: Normal Inspection Upper Extremity: Present: Normal Inspection. No: Cyanosis, Edema Lower Extremity: Present: Normal Inspection. No: Edema Neurological: Present: GCS=15, CN II-XII Intact, Speech Normal Skin: Present: Warm, Dry, Normal Color. No: Rashes Psychiatric: Present: Alert, Oriented x 3, Normal Insight, Normal Concentration Medical Decision Making ED Course and Treatment: 09/11/18 01:22 Impression: 73 year old male presents with chest congestion and generalized malaise Plan: -- Cardiac chem -- EKG -- Labs -- Chest X-ray -- Rapid flu -- Reassess and disposition Prior Visits: Notes and results from previous visits were reviewed. Progress Notes: 09/11/18 01:25 EKG reviewed by me, shows: Normal sinus rhythm @89 bpm Normal EKG 09/11/18 01:52 Chest X-ray reviewed by me, shows: Right sided linear infiltrate vs. atelectasis 09/11/18 03:50 Patient labs consistent with pneumonia. Spoke to Dr Milligan who accepts to his service. - Scribe Statement The provider has reviewed the documentation as recorded by the Garretibwendi Williamson Provider Scribe Attestation: All medical record entries made by the Scribe were at my direction and personally dictated by me. I have reviewed the chart and agree that the record accurately reflects my personal performance of the history, physical exam, medical decision making, and the department course for this patient. I have also personally directed, reviewed, and agree with the discharge instructions and disposition. Disposition/Present on Arrival - Present on Arrival Any Indicators Present on Arrival: No History of DVT/PE: No History of Uncontrolled Diabetes: Yes Urinary Catheter: No History of Decub. Ulcer: No History Surgical Site Infection Following: None - Disposition Have Diagnosis and Disposition been Completed?: Yes Diagnosis: Bronchopneumonia Disposition: HOSPITALIZED Disposition Time: 03:53 Patient Problems: Current Active Problems Problem Status Onset Bronchopneumonia Acute Condition: STABLE Referrals: Michael Milligan MD [Primary Care Provider] - Follow up with primary
[2018-09-11 01:35] LABS: HEMOGLOBIN 10.8 g/dL (14.0-18.0); MEAN CELL VOLUME 84.1 fl (80.0-105.0); MEAN CORPUSCULAR HEMOGLOBIN 26.8 pg (25.0-35.0); MEAN CORPUSCULAR HGB CONC 31.9 g/dl (31.0-37.0); MEAN PLATELET VOLUME 9.9 fl (7.0-11.0); RBC 4.03 10^6/uL (3.5-6.1); RED CELL DISTRIBUTION WIDTH 14.7 % (11.5-14.5); WHITE BLOOD COUNT 9.6 10^3/uL (4.5-11.0)
[2018-09-11 01:43] LABS: INR 1.01; PARTIAL THROMBOPLASTIN TIME 28.5 Seconds (25.1-36.5); PROTHROMBIN TIME 11.5 SECONDS (9.4-12.5)
[2018-09-11 01:45] LABS: ALB/GLOB RATIO 1.2 (1.1-1.8); ALBUMIN 4.2 g/dL (3.0-4.8); ALT/SGPT 24 U/L (7-56); AST/SGOT 44 U/L (17-59); BLOOD UREA NITROGEN 23 mg/dL (7-21); GFR NON-AFRICAN AMERICAN 46
[2018-09-11 01:56] LABS: B-TYPE NATRIURETIC PEPTIDE 117 pg/mL (0-450); TROPONIN I < 0.01 ng/mL
[2018-09-11] MEDS ORDERED: Albuterol-Ipratrop 3 mg / 0.5 (3 ml) UD IH STA (03:50)
[2018-09-11] MEDS ORDERED: Azithromycin 500MG/NS 250ml 500 MG/250 ML BAG IV STA (03:53)
[2018-09-11] MEDS ORDERED: cefTRIAXone 1 gm 1 GM/100 ML BAG IV STA (03:53)
[2018-09-11 06:39] VITALS: BMI 27.1
[2018-09-11] MEDS ORDERED: cefTRIAXone 1 gm 1 GM/100 ML BAG IV SCH (08:30)
[2018-09-11] MEDS ORDERED: Promethazine/Cod 6.25mg-10mg/5ml Syr UD PO PRN (08:33)
[2018-09-11] MEDS: Pantoprazole 40 mg EC Tab PO SCH (09:31)
[2018-09-11] MEDS: Metoprolol Succinate 25 mg XL Tab PO SCH ×4 (09:31→18:15)
[2018-09-11] MEDS: cefTRIAXone 1 gm 1 GM/100 ML BAG IV SCH ×2 (09:31→13:13)
[2018-09-11] MEDS: DONEPEZIL HCL PO SCH (09:33)
[2018-09-11] MEDS: MEMANTINE HCL PO SCH (09:33)
[2018-09-11] MEDS ORDERED: DONEPEZIL HCL PO SCH (10:00)
[2018-09-11] MEDS ORDERED: DICYCLOMINE PO SCH (10:00)
[2018-09-11] MEDS ORDERED: MEMANTINE HCL PO SCH (10:00)
--- NOTE | 2018-09-11 12:42 | RAD ---
HISTORY: cough COMPARISON: Chest x-ray performed 02/13/18 TECHNIQUE: Chest, one view. FINDINGS: LUNGS: No focal consolidation. Please note that chest x-ray has limited sensitivity for the detection of pulmonary masses. PLEURA: No significant pleural effusion identified. No definite pneumothorax . CARDIOVASCULAR: Median sternotomy wires. Heart size appears within normal limits. Atherosclerotic calcifications of the aorta. OSSEOUS STRUCTURES: Degenerative changes. VISUALIZED UPPER ABDOMEN: Unremarkable. OTHER FINDINGS: None. IMPRESSION: No focal consolidation.
--- NOTE | 2018-09-11 16:28 | CON ---
DATE: 09/11/2018 PULMONARY CONSULTATION NOTE REFERRING PHYSICIAN: Michael Milligan MD. REASON FOR CONSULTATION: Cough and shortness of breath. HISTORY OF PRESENT ILLNESS: This is a 73-year-old male with past medical history significant for CABG, paroxysmal atrial fibrillation, diabetes, and hypertension. The patient presented to the emergency room complaining of cough and shortness of breath. Today, the patient complaining of cough shortness of breath with exertion. No headache, rhinitis, chest pain, abdominal pain, nausea, vomiting, diarrhea, leg pain, or leg swelling reported. PAST MEDICAL HISTORY: As per history of present illness. FAMILY HISTORY: No cardiopulmonary disease reported. SOCIAL HISTORY: No alcohol use, illicit drug use, and never smoked. ALLERGIES: NO KNOWN ALLERGIES. REVIEW OF SYSTEMS: No headache, rhinitis, abdominal pain, nausea, vomiting, diarrhea, leg pain, or leg swelling reported. The patient does report some shortness of breath at times, cough some pain when he coughs. MEDICATIONS: Reviewed. Eliquis 5 mL twice a day, Lipitor 10 mg at dinner, Rocephin 1 gram daily, Plendil 10 mg twice day, doxycycline 100 mg every 12 hours, Proscar 5 mg daily, Neurontin 300 mg four times a day, Glucophage 1000 mg twice a day, metoprolol succinate 25 mg twice a day, midodrine 2.5 mg twice a day, Protonix 40 mg daily, Lyrica 100 mg daily, Phenergan-Codeine 5 mL every 4 hours p.r.n., and Januvia 100 mg daily. PHYSICAL EXAMINATION: GENERAL: No acute distress. VITAL SIGNS: Blood pressure 108/71, pulse 73, temperature 98.3, and oxygen saturation 98% on room air. HEENT: Moist mucous membranes. NECK: Supple. No JVD. RESPIRATORY: Few rhonchi bilaterally. CARDIOVASCULAR: S1 and S2 audible. ABDOMEN: Soft and nontender. No distension. No organomegaly. Positive bowel sounds. EXTREMITIES: No bilateral lower extremity edema. NEUROLOGICAL: Awake, alert, verbal, and follows commands. LABORATORY DATA: Reviewed. Sodium 138, potassium 4.4, chloride 102, carbon dioxide 26, anion gap 14, BUN 23, creatinine 1.5. GFR 46. POC glucose 206 and random glucose 165. Calcium 9, total bilirubin 0.3, AST 44, ALT 24, and alkaline phosphatase 57. Lactate dehydrogenase 294. Total creatine kinase 81. Troponin less than 0.01. ProBNP 117. Total protein 7.8, albumin 4.2, globulin 3.6 and albumin-globulin ratio 1.2. WBC 9.6, RBC 4.03, hemoglobin 10.8, hematocrit 33.9, and platelets 282. PT 11.5, INR 1.01, APTT 28.5. Influenza type AB negative for flu A and B. Chest x-ray shows no focal consolidation. IMPRESSION AND PLAN: Paroxysmal atrial fibrillation, diabetes, hypertension, history of coronary artery bypass surgery, viral syndrome possible bronchitis. We will get Procalcitonin level to rule out pneumonia. Continue antibiotics to cover bacterial bronchitis versus pneumonia. We will add Pulmicort, Brovana, and Mucomyst. Continue anticoagulation therapy, gastric prophylaxis, and head of bed elevated 45 degrees. This patient was seen and examined with Dr. Stephenson. Discussed the assessment and plan as described above. Thank you for this consult. We will follow with you. Rene Puga APN Beatriz Stephenson MD
[2018-09-11] MEDS: Enoxaparin 40 mg Syringe SC SCH (18:05)
--- NOTE | 2018-09-11 19:01 | CARD ---
APPROVED REPORT Date of service: 09/11/2018 EKG Measurement Heart [id number] <Conclusion> Normal sinus rhythm Normal ECG
[2018-09-11] MEDS: Budesonide 0.5 mg/2 ml Inhal Susp UD IH SCH (20:51)
[2018-09-11] MEDS: Arformoterol 15 mcg/2 ml Inh Sol IH SCH (20:51)
[2018-09-11] MEDS: Acetylcysteine 20% Inhal Soln (4ml) IH SCH (20:51)
[2018-09-12] MEDS: Arformoterol 15 mcg/2 ml Inh Sol IH SCH ×2 (07:52→20:07)
[2018-09-12] MEDS: Budesonide 0.5 mg/2 ml Inhal Susp UD IH SCH ×2 (07:52→20:07)
[2018-09-12] MEDS: Acetylcysteine 20% Inhal Soln (4ml) IH SCH ×2 (07:52→20:07)
--- NOTE | 2018-09-12 08:17 | CP.PCM.CON ---
History of Present Illness - History of Present Illness History of Present Illness: PGY-[address] Odonnell ID consult: flu-like symptoms, pneumonia Mr Eckert, Armenian 73M with PMH of CAD S/P CABG, HTN, paroxysmal afib on eliquis C/O cough and shortness of breath. Pt's son Devaughn translated. 10 days ago, pt started to have sore throat, runny nose, cough with yellow sputum, headache, and watery eyes. Her chronic dizziness was worsen during this time. (+) generalized malaise. Pt has generalized weakness yesterday, SOB, worsen dizziness, which prompted pt to come to hosp. Denies recent antibiotics, no sick contact, no animal, no night sweat, 5lb wt loss in last week ROS: Patient denies taking the flu shot this year. Patient denies any chills, headache, dizziness, abdominal pain, nausea, vomiting, diarrhea, back pain, neck pain, dysuria or any other complaints. Last BM 2 days ago with straining PMH Dementia on Memantine HCl/Donepezil CAD S/P CABG, HTN, paroxysmal afib on eliquis DM (A1C 7.4 2018) PSH Open heart, CABG FH Brother cancer SH Denies ever smoke, drink, drug All NKDA Med See [facility] PMD.Dr Milligan In ED: VS: T afebrile HR 119, SBP 100s, RR 20, 94%RA WBC 9.6, Hb 10.8, CMP: BUN 23/ Cre 1.5. LDH 294 EKG: NSR @[address]/TWI CXR: Right sided linear infiltrate vs. atelectasis BCx neg x 1d Got ceftriaxone and Azithromycin Past Patient History - Infectious Disease Hx of Infectious Diseases: None - Past Social History Smoking Status: Never Smoked - CARDIAC Hx Cardiac Disorders: Yes Hx Angina: No Hx Cardia Arrhythmia: No Hx Circulatory Problems: No Hx Congestive Heart Failure: No Hx Heart Murmur: No Hx Heart Transplant: No Hx Hypercholesterolemia: No Hx Hypertension: Yes Hx Internal Defibrillator: No Hx Mitral Valve Prolapse: No Hx Pacemaker: No Hx Peripheral Edema: No Hx Peripheral Vascular Disease: No Other/Comment: open heart surgery - PULMONARY Hx Respiratory Disorders: No Hx Asthma: No Hx Bronchitis: No Hx Chronic Obstructive Pulmonary Disease (COPD): No Hx Emphysema: No Hx Pneumonia: No Hx Respiratory Aspiration: No Hx Respiratory Tract Infection: No Hx Sleep Apnea: No Hx Tuberculosis: No - NEUROLOGICAL Hx Neurological Disorder: No Hx Alzheimer's Disease: No HX Cerebrovascular Accident: No Hx Dementia: No Hx Dizziness: No Hx Meningitis: No Hx Migraine: No Hx Parkinson's Disease: No Hx Seizures: No Hx Transient Ischemic Attacks (TIA): No - HEENT Hx HEENT Problems: No Hx Blind: No Hx Cataracts: No Hx Deafness: No Hx Difficulty Chewing: No Hx Epistaxis: No Hx Glaucoma: No Hx Macular Degeneration: No - RENAL Hx Chronic Kidney Disease: No Hx Dialysis: No Hx Kidney Stones: No Hx Neurogenic Bladder: No Hx Pyelonephritis: No Hx Renal (Kidney) Cancer: No Hx Renal Failure: No - ENDOCRINE/METABOLIC Hx Endocrine Disorders: No Hx Adrenal Cancer: No Hx Diabetes Insipidus: No Hx Diabetes Mellitus Type 1: No Hx Diabetes Mellitus Type 2: Yes Hx Hyperthyroidism: No Hx Hypothyroidism: No Hx Systemic Lupus Erythematosus: No Other/Comment: diabetic - HEMATOLOGICAL/ONCOLOGICAL Hx Blood Disorders: No Hx AIDS: No Hx Anemia: No Hx Cancer: No Hx Chemotherapy: No Hx Cirrhosis: No Hx Hemophilia: No Hx Hepatitis A: No Hx Hepatitis B: No Hx Hepatitis C: No Hx Human Immunodeficiency Virus (HIV): No Hx Metastesis: No Hx Shingles: No Hx Sickle Cell Disease: No Hx Unexplained Bleeding: No - INTEGUMENTARY Hx Dermatological Problems: No Hx Basil Cell: No Hx Eczema: No Hx Melanoma: No Hx Psoriasis: No Hx Squamous Cell: No - MUSCULOSKELETAL/RHEUMATOLOGICAL Hx Musculoskeletal Disorders: No Hx Arthritis: No Hx Back Pain: No Hx Degenerative Joint Disease: No Hx Falls: Yes Hx Fractures: No Hx Gout: No Hx Herniated Disk: No Hx Myasthenia Gravis: No Hx Osteoarthritis: No Hx Osteomyelitis: No Hx Osteoporosis: No Hx Rhabdomyolysis: No Hx Spinal Stenosis: No Hx Unsteady Gait: No - GASTROINTESTINAL Hx Gastrointestinal Disorders: No Hx Colostomy: No Hx Crohn's Disease: No Hx Diverticulitis: No Hx Gall Bladder Disease: No Hx Gastroesophageal Reflux: No Hx Ileostomy: No Hx Liver Failure: No Hx Pancreatitis: No HX Swallowing Problems: No Hx Ulcer: No - GENITOURINARY/GYNECOLOGICAL Hx Genitourinary Disorders: No Hx Hematuria: No Hx Incontinence: No Hx Prostate Problems: No Hx Sexually Transmitted Disorders: No Hx Urinary Tract Infection: No - PSYCHIATRIC Hx Psychophysiologic Disorder: No Hx Anxiety: No Hx Bipolar Disorder: No Hx Depression: No Hx Emotional Abuse: No Hx Hallucinations: No Hx Panic Symptoms: No Hx Paranoia: No Hx Post Traumatic Stress Disorder: No Hx Psychosis: No Hx Physical Abuse: No Hx Schizophrenia: No Hx Sexual Abuse: No - SURGICAL HISTORY Hx Surgeries: Yes Hx Amputation: No Hx Appendectomy: No Hx Cardiac Catheterization: Yes Hx Cholecystectomy: No Hx Coronary Stent: Yes Hx Gastric Bypass Surgery: No Hx Hysterectomy: No Hx Joint Replacement: No Hx Kidney Transplant: No Hx Liver Transplant: No Hx Mastectomy: No Hx Musculoskeletal Surgery: No Hx Open Heart Surgery: Yes Hx Orthopedic Surgery: No Hx Splenectomy: No Hx Valve Replacement: No - ANESTHESIA Hx Anesthesia: Yes Meds Allergies/Adverse Reactions: Allergies Allergy/AdvReac Type Severity Reaction Status Date / Time No Known Allergies Allergy Verified 09/11/18 00:40 - Medications Medications: Current Medications Acetylcysteine (Acetylcysteine 20%) 4 ml IH BIDRESP [facility] Last Admin: 09/12/18 07:52 Dose: 4 ml Arformoterol Tartrate (Brovana) 15 mcg IH [id number] [facility] Last Admin: 09/12/18 07:52 Dose: 15 mcg Atorvastatin Calcium (Lipitor) 10 mg PO DIN [facility] Last Admin: 09/11/18 18:04 Dose: 10 mg Budesonide (Pulmicort Respules) 0.5 mg IH [id number] [facility] Last Admin: 09/12/18 07:52 Dose: 0.5 mg Dicyclomine HCl (Bentyl) 10 mg PO BID [facility] Last Admin: 09/11/18 18:05 Dose: Not Given Enoxaparin Sodium (Lovenox) 40 mg SC DAILY [facility]; Protocol Last Admin: 09/11/18 18:05 Dose: 40 mg Finasteride (Proscar) 5 mg PO DAILY [facility] Last Admin: 09/11/18 09:30 Dose: 5 mg Doxycycline Hyclate 100 mg/ (Sodium Chloride) 100 mls @ 100 mls/hr IVPB Q12 [facility]; Protocol Last Admin: 09/11/18 22:17 Dose: 100 mls/hr Ceftriaxone Sodium (Rocephin 1 Gram Ivpb) 1 gm in 100 mls @ 200 mls/hr IV DAILY [facility]; Protocol Last Admin: 09/11/18 13:13 Dose: Not Given Metformin HCl (Glucophage) 1,000 mg PO BID [facility] Last Admin: 09/11/18 18:04 Dose: 1,000 mg Metoprolol Succinate (Toprol Xl) 25 mg PO BID [facility] Last Admin: 09/11/18 18:15 Dose: Not Given Midodrine (Proamatine) 2.5 mg PO BID [facility] Last Admin: 09/11/18 18:04 Dose: 2.5 mg Non-Formulary Medication (Memantine Hcl/Donepezil Hcl [Namzaric Titration Pack]) 1 tab PO DAILY [facility] Last Admin: 09/11/18 09:33 Dose: Not Given Oseltamivir Phosphate (Tamiflu Cap) 75 mg PO BID [facility]; Protocol Stop: 09/15/18 19:00 Last Admin: 09/11/18 18:05 Dose: 75 mg Pantoprazole Sodium (Protonix Ec Tab) 40 mg PO DAILY [facility] Last Admin: 09/11/18 09:31 Dose: 40 mg Pregabalin (Lyrica) 100 mg PO TID [facility] Last Admin: 09/11/18 18:05 Dose: 100 mg Promethazine HCl/Codeine (Phenergan/Codeine Oral Syrup) 5 ml PO Q4H PRN PRN Reason: Cough and congestion Sitagliptin Phosphate (Januvia) 100 mg PO DAILY [facility] Last Admin: 09/11/18 09:31 Dose: 100 mg Physical Exam - Constitutional Appears: No Acute Distress - Head Exam Head Exam: ATRAUMATIC, NORMAL INSPECTION, NORMOCEPHALIC - Eye Exam Eye Exam: EOMI, Normal appearance, PERRL. absent: Scleral icterus Pupil Exam: NORMAL ACCOMODATION - ENT Exam ENT Exam: Mucous Membranes Moist - Neck Exam Additional comments: supple - Respiratory Exam Respiratory Exam: Clear to Auscultation Bilateral, Rhonchi, Wheezes, NORMAL BREATHING PATTERN. absent: Accessory Muscle Use, Decreased Breath Sounds - Cardiovascular Exam Cardiovascular Exam: REGULAR RHYTHM, +S1, +S2 - GI/Abdominal Exam GI & Abdominal Exam: Normal Bowel Sounds, Soft, Tenderness (sharp severe tenderness LLQ upon palpation). absent: Distended, Guarding - Extremities Exam Extremities exam: Positive for: pedal pulses present. Negative for: calf tenderness, pedal edema - Back Exam Back exam: absent: CVA tenderness (L), CVA tenderness (R) - Neurological Exam Neurological exam: Alert, Oriented x3 - Psychiatric Exam Psychiatric exam: Normal Affect, Normal Mood - Skin Skin Exam: Dry, Warm Results - Vital Signs Recent Vital Signs: Last Vital Signs Temp 97.7 F 09/11/18 23:01 Pulse 86 09/11/18 23:01 Resp 16 09/11/18 23:01 BP 124/75 09/11/18 23:01 Pulse Ox 94 L 09/11/18 23:01 - Labs Result Diagrams: 09/11/18 01:19 09/11/18 01:19 Labs: Laboratory Results - last 24 hr 09/11/18 09/11/18 09/11/18 09:41 16:42 23:15 POC Glucose (mg/dL) 206 H 134 H 199 H 09/12/18 06:40 POC Glucose (mg/dL) 173 H Assessment & Plan - Assessment and Plan (Free Text) Plan: A: Severe Sepsis complicated by VANDANA likely from systemic viral illness from influenza, vs acute bacterial bronchitis r/o Community acquired pneumonia Sharp abdominal pain LLQ, Hx constipation P: Cefepime, Doxycycline, tamiflu (day 2) Ordered flu PCR Follow on CT A/P with PO contrast Follow on procalcitonin, U legionella/streop/mycoplasma, Sputum Cx, Blood Cx, MRSA screen Follow Urinalysis and urine culture for VANDANA Follow on HIV screen and quantiferon gold s/r/d/w Dr Odonnell
[2018-09-12 08:43] VITALS: RESP 20
[2018-09-12] MEDS: Pantoprazole 40 mg EC Tab PO SCH (11:00)
[2018-09-12] MEDS: Metoprolol Succinate 25 mg XL Tab PO SCH ×2 (11:01→18:22)
[2018-09-12] MEDS: cefTRIAXone 1 gm 1 GM/100 ML BAG IV SCH (11:02)
[2018-09-12] MEDS: Enoxaparin 40 mg Syringe SC SCH (11:02)
[2018-09-12] MEDS ORDERED: Barium Sulfate Susp 2.1% w/v, 2.0% w/w 450 mL Bottle PO ONE (12:33)
--- NOTE | 2018-09-12 12:42 | PN ---
DATE: 09/12/2018 PULMONARY PROGRESS NOTE REFERRING PHYSICIAN: Dr. Michael Milligan. SUBJECTIVE: The patient is lying in bed. No acute distress. No overnight events reported. Reports some improvement in cough and shortness of breath. Reports not having bowel movement. No headache, rhinitis, chest pain, abdominal pain, nausea, vomiting, diarrhea, leg pain, or leg swelling reported. OBJECTIVE: GENERAL: No acute distress. VITAL SIGNS: Blood pressure 102/59, pulse 82, temperature 98, and oxygen saturation 97% on room air. HEENT: Moist mucous membranes. NECK: Supple. No JVD. RESPIRATORY: Few scattered rhonchi bilaterally. CARDIOVASCULAR: S1 and S2 audible. ABDOMEN: Soft and mild tenderness. No organomegaly. EXTREMITIES: No bilateral lower extremity edema. NEUROLOGICAL: Awake, alert, and verbal. Follows commands. MEDICATIONS: Reviewed. Mucomyst 4 mL inhalation twice a day, Brovana 15 mcg every 12 hours, Lipitor 10 mg at dinner, Pulmicort 0.5 mg every 12 hours, Rocephin 1 g daily, Bentyl 10 mg twice day, doxycycline 100 mg every 12 hours, Lovenox 40 mg subcu daily, Proscar 5 mg daily, metformin 1000 mg twice a day, metoprolol succinate 25 mg twice a day, midodrine 2.5 mg twice a day, memantine 1 tab daily, Tamiflu 75 mg twice a day, Protonix 40 mg daily, Lyrica 100 mg three times a day, Phenergan with Codeine 5 mL every 4 hours p.r.n., and Januvia 100 mg p.o. daily. LABORATORY DATA: Reviewed. POC glucose 249. Blood cultures preliminary, no growth after 24 hours. IMPRESSION AND PLAN: Paroxysmal atrial fibrillation, diabetes, hypertension, history of coronary artery bypass graft, viral syndrome, possible bronchitis. Procalcitonin was drawn this morning, results pending. Continue antibiotic therapy. Continue inhaled bronchodilators. Continue anticoagulation therapy, gastric prophylaxis, and head of bed elevated at 45 degrees. We will order suppository 1 dose for constipation. Monitor bowel movements. Recommend physical therapy, out of bed to chair. This patient was seen and examined with Dr. Stephenson. Discussed the assessment and plan as described above. Thank you for this consult. We will follow with you. Rene Puga APN Beatriz Stephenson MD [facility] # [id number]
--- NOTE | 2018-09-12 12:58 | HP ---
DATE OF EXAM: 09/12/2018 REASON FOR ADMISSION: Cough and short of breath. HISTORY OF PRESENT ILLNESS: A 73-year-old male with history of diabetes, hypertension, peripheral neuropathy, bypass surgery and came in to the hospital with coughing and fever that resolved. He has been improving on that but he still has significant cough and short of breath. The patient also had his sick, she came into the hospital. He has no other complaints except persistent cough and getting short of breath. The patient has multiple medical problems as above. He denies any fever and chills or any other complaints. PAST MEDICAL HISTORY: Congestive heart failure, ischemic heart disease with bypass surgery, low ejection fractions 40%, diabetes type 2, hypercholesterolemia, peripheral neuropathy. ALLERGIES: HE HAS NO KNOWN ALLERGIES. HOME MEDICATIONS: He takes Lyrica 100 mg three times a day, Januvia 100 mg once a day, Zocor 20 mg, Prandin 2 mg three times a day, aspirin 81 mg, Protonix 40 mg, Toprol 25 mg two times a day, Glucophage 1000 mg two times a day, amantadine once a day, Proscar once a day, doxycycline 100 mg two times a day, Lipitor 10 mg p.o. with dinner and Bentyl one twice a day p.r.n and midodrine 2.5 mg two times a day. FAMILY HISTORY: Noncontributory. SOCIAL HISTORY: He lives with his . No smoking and no drinking. PHYSICAL EXAMINATION: Please be advised this note for 09/11/2018. VITAL SIGNS: Temperature 98.3, heart rate 73, blood pressure is 148/71, respirations 20, saturating 98%. HEAD AND NECK: Normal. No JVD. No thyromegaly. CHEST: Clear bilateral. CARDIAC: First sound and second sound normal. ABDOMEN: Soft, obese, and nontender. EXTREMITIES: No edema. There is a scar of previous surgery, scar from previous venous vein harvesting. LABORATORY DATA: White count 9.6, hemoglobin 10.8, hematocrit 33.9, platelets 282. Chemistries: Sodium 138, potassium 4.4, chloride 102, bicarb 26, BUN 23, creatinine 1.5. Blood sugar 165. Liver function test is normal including AST, ALT and alkaline phosphatase are normal. Troponin is negative. IMPRESSION AND PLAN: A 73-year-old male with persistent cough, has been sick. The patient came to the hospital for evaluation. Chest x-ray, no infiltrates. He also had serology done which is negative for a flu. We will admit the patient for acute severe bronchitis. We will give him Rocephin and doxycycline IV two times a day. and we will give nebulizer treatment. We will continue all his medications and we will follow up clinically. We will get a pulmonary consult. We will admit him. Michael Milligan MD
[2018-09-12] MEDS: Insulin Lispro (humaLOG) LOW Coverage SC SCH ×2 (18:19→22:39)
[2018-09-12] MEDS: DONEPEZIL HCL PO SCH (19:21)
[2018-09-12] MEDS: MEMANTINE HCL PO SCH (19:21)
[2018-09-13] MEDS: Budesonide 0.5 mg/2 ml Inhal Susp UD IH SCH (07:27)
[2018-09-13] MEDS: Arformoterol 15 mcg/2 ml Inh Sol IH SCH (07:27)
[2018-09-13] MEDS: Acetylcysteine 20% Inhal Soln (4ml) IH SCH (07:27)
[2018-09-13 09:16] VITALS: BP 102/59; PULSE 79; TEMP 98.3; O2SAT 98
[2018-09-13] MEDS: Insulin Lispro (humaLOG) LOW Coverage SC SCH ×2 (09:32→12:06)
[2018-09-13] MEDS ORDERED: POLYETHYLENE GLYCOL 3350 17 GM/Dose PACKET PO SCH (10:00)
[2018-09-13] MEDS: cefTRIAXone 1 gm 1 GM/100 ML BAG IV SCH (10:15)
[2018-09-13] MEDS: Pantoprazole 40 mg EC Tab PO SCH (10:16)
[2018-09-13] MEDS: Metoprolol Succinate 25 mg XL Tab PO SCH (10:17)
[2018-09-13] MEDS: Enoxaparin 40 mg Syringe SC SCH (10:17)
--- NOTE | 2018-09-13 11:50 | PN ---
DATE: 09/12/2018 SUBJECTIVE: The patient is still coughing, but he is improving clinically, seems less short of breath. No chest pain, afebrile. Seen by Infectious Disease Dr. Odonnell. PHYSICAL EXAMINATION: VITAL SIGNS: Temperature 98, heart rate 82, blood pressure 124/75, respirations 16, oxygen level 94% on room air. HEAD AND NECK: Normal. No JVD. No thyromegaly. CHEST: Clear . There is some fine rales on the left base, lower lung field. CARDIAC: First sound and second sound normal. ABDOMEN: Soft and nontender. EXTREMITIES: No edema. NEUROLOGIC: Normal. IMPRESSION AND PLAN: 1. Acute bronchitis, possible underlying pneumonia. Continue current therapy. The patient is given Rocephin, doxycycline. Continue inhaled bronchodilators and we will follow up clinically. 2. The patient has diabetes. Continue current insulin coverage plus oral hypoglycemic pills. 3. Coronary artery disease. 4. History of congestive heart failure. The patient was medically stable, will follow with the psychiatric np. Resume all his cardiac meds. CURRENT MEDICATIONS: He is taking Mucomyst, Bentyl, Brovana, doxycycline, metformin 1000 mg twice daily, insulin coverage, Januvia 100, Lipitor 10 mg, Lovenox 40 mg subcu, and he is getting MiraLax p.r.n., promethazine was continued. He is getting midodrine 2.5 mg twice a day, Proscar 5 mg, and he also getting Pulmicort, Rocephin 1 g, Tamiflu twice daily, and Toprol XL 25 mg twice daily. PLAN: The patient seems clinically stable. He will follow up with the ID doctor, ID consultation, follow up recommendations. It seems he is getting better. We will follow up on the CT chest. Michael Milligan MD
--- NOTE | 2018-09-13 13:05 | CT ---
Date of service: 09/12/2018 PROCEDURE: CT Chest, Abdomen and Pelvis without intravenous contrast HISTORY: r/o infiltrate COMPARISON: None available. TECHNIQUE: Radiation dose: Total exam DLP = 1039.15 mGy-cm. This CT exam was performed using one or more of the following dose reduction techniques: Automated exposure control, adjustment of the mA and/or kV according to patient size, and/or use of iterative reconstruction technique. FINDINGS: CT CHEST WITHOUT CONTRAST: LUNGS: Clear. No nodule, mass or consolidation. MEDIASTINUM: Unremarkable. Normal caliber aorta and pulmonary arterial trunk. Normal size heart. Coronary artery calcifications LYMPH NODES: Unremarkable. PLEURA: Unremarkable. No pneumothorax. No pleural fluid. BONES: Sternal wires OTHER FINDINGS: None. CT ABDOMEN AND PELVIS: LIVER: Unremarkable. No gross lesion or ductal dilatation. GALLBLADDER AND BILE DUCTS: Gallstones PANCREAS: Unremarkable. No gross lesion or ductal dilatation. SPLEEN: Unremarkable. ADRENALS: Unremarkable. No mass. KIDNEYS AND URETERS: Unremarkable. No hydronephrosis. No solid mass. VASCULATURE: Minimal aortic calcification Unremarkable. No aortic aneurysm. BOWEL: Unremarkable. No obstruction. No gross mural thickening. APPENDIX: Normal appendix. PERITONEUM: Unremarkable. No free fluid. No free air. LYMPH NODES: Unremarkable. No enlarged lymph nodes. BLADDER: Unremarkable. REPRODUCTIVE: Unremarkable. BONES: No acute fracture. OTHER FINDINGS: None. IMPRESSION: No acute findings
--- NOTE | 2018-09-13 14:21 | PN ---
DATE: 09/13/2018 PULMONARY PROGRESS NOTE REFERRING PHYSICIAN: Michael Milligan MD SUBJECTIVE: The patient is sitting in armchair in room, in no acute distress. No overnight events reported. The patient reports improvement in shortness of breath and cough, although cough is still present. No headache, rhinitis, chest pain, abdominal pain, nausea, vomiting, diarrhea, leg pain, leg swelling reported. The patient also reports having bowel movement yesterday. OBJECTIVE: GENERAL: No acute distress. VITAL SIGNS: Blood pressure 102/59, pulse 79, temperature 98.3, oxygen saturation 98% on room air. HEENT: Moist mucous membranes. NECK: Supple. No JVD. LUNGS: Mild rales, left base. CARDIOVASCULAR: S1, S2 audible. ABDOMEN: Soft, nontender. No distension. No organomegaly. EXTREMITIES: No bilateral lower extremity edema. NEUROLOGIC: Awake, alert, verbal, follows commands. MEDICATIONS: Reviewed. Mucomyst 4 mL inhalation twice a day, Brovana 15 mcg every 12 hours, Lipitor 10 mg at dinner, Pulmicort 0.5 mg every 12 hours, Rocephin 1 g daily, Bentyl 10 mg twice a day, doxycycline 100 mg every 12 hours, Lovenox 40 mg subcutaneously daily, Proscar 5 mg daily, Humalog sliding scale a.c. and at bedtime, metformin 1000 mg p.o. twice a day, metoprolol succinate 25 mg twice a day, midodrine 2.5 mg twice a day, Tamiflu 75 mg twice a day, Protonix 40 mg daily, MiraLax 17 g daily, Lyrica 100 mg 3 times a day, Phenergan with Codeine 5 mL every 4 hours p.r.n., Januvia 100 mg daily. LABORATORY DATA: Reviewed. POC glucose 204. Blood cultures preliminary, no growth after 48 hours. Chest, abdomen, pelvic CT pending. IMPRESSION AND PLAN: Viral syndrome, possible acute bronchitis, paroxysmal atrial fibrillation, diabetes, hypertension, history of coronary artery bypass grafting. Procalcitonin is 0.05; therefore, ruling out pneumonia. Continue inhaled bronchodilators. Continue antibiotic therapy. CT pending, we will followup when available. Continue anticoagulation therapy, gastric prophylaxis, head of bed elevated to 45 degrees. This patient was seen and examined with Dr. Stephenson. Discussed assessment and plan as described above. Thank you for this consult. We will follow with you. Rene Puga APN Beatriz Stephenson MD
--- NOTE | 2018-09-13 17:12 | CP.PCM.PN ---
<Cami Tucker - Last Filed: 09/13/18 17:12> Subjective - Date & Time of Evaluation Date of Evaluation: 09/13/18 Time of Evaluation: 10:00 - Subjective Subjective: ID progress note PGY-[address] Loaiza Pt had laxative yesterday, went to bathroom, abdominal pain resolved. SOB improves Objective - Vital Signs/Intake and Output Vital Signs (last 24 hours): Temp Pulse Resp BP Pulse Ox 98.3 F 79 20 102/59 L 98 09/13/18 06:00 09/13/18 06:00 09/13/18 06:00 09/13/18 06:00 09/13/18 06:00 - Labs Labs: 09/11/18 01:19 09/11/18 01: PT 11.5 SECONDS (9.4-12.5) 09/11/18 01: INR 1.01 09/11/18 01: APTT 28.5 Seconds (25.1-36.5) 09/11/18 01:19 - Constitutional Appears: No Acute Distress - Head Exam Head Exam: ATRAUMATIC, NORMAL INSPECTION, NORMOCEPHALIC - Eye Exam Eye Exam: EOMI, Normal appearance, PERRL. absent: Scleral icterus Pupil Exam: NORMAL ACCOMODATION - ENT Exam ENT Exam: Mucous Membranes Moist - Neck Exam Additional comments: supple - Respiratory Exam Respiratory Exam: Clear to Ausculation Bilateral, Rhonchi. absent: Rales, Wheezes - Cardiovascular Exam Cardiovascular Exam: REGULAR RHYTHM, +S1, +S2 - GI/Abdominal Exam GI & Abdominal Exam: Soft, Normal Bowel Sounds. absent: Guarding, Rigid, Tenderness - Extremities Exam Extremities Exam: absent: Calf Tenderness, Pedal Edema - Back Exam Back Exam: absent: CVA tenderness (L), CVA tenderness (R) - Neurological Exam Neurological Exam: Alert, Awake - Psychiatric Exam Psychiatric exam: Normal Affect, Normal Mood - Skin Skin Exam: Dry, Warm Assessment and Plan - Assessment and Plan (Free Text) Plan: A: Severe Sepsis complicated by VANDANA likely from systemic viral illness from influenza, vs acute bacterial bronchitis Had ruled out Community acquired pneumonia Sharp abdominal pain LLQ, Hx constipation - resolved P: Cefepime, Doxycycline, tamiflu (day 2). May deescalate antibiotics. Follow flu PCR CT C/A/P: Negative Procalc is 0.05 Follow U legionella/streop/mycoplasma, Sputum Cx, Blood Cx, MRSA screen Follow Urinalysis and urine culture for VANDANA Follow on HIV screen and quantiferon gold s/r/d/w Dr Loaiza <Ramírez Loaiza - Last Filed: 09/13/18 23:13> Objective - Vital Signs/Intake and Output Vital Signs (last 24 hours): Temp Pulse Resp BP Pulse Ox 98.3 F 79 20 102/59 L 98 09/13/18 06:00 09/13/18 06:00 09/13/18 06:00 09/13/18 06:00 09/13/18 06:00 - Labs Labs: 09/11/18 01:19 09/11/18 01:19 PT 11.5 SECONDS (9.4-12.5) 09/11/18 01: INR 1.01 09/11/18 01:19 APTT 28.5 Seconds (25.1-36.5) 09/11/18 01:19 Assessment and Plan - Assessment and Plan (Free Text) Plan: Infectious diseases Attending Physician Attestation Patient seen and examined, discussed with medical director. I have reviewed the patient's history of present illness, past medical, social, personal and family histories, pertinent physical exam findings, course so far in this hospital admission, pertinent laboratory and imaging results. I agree with the above findings, assessment and plan. In addition, on Cefepime, Doxycycline and Tamiflu for sepsis due to systemic viral illness consider Influenza, with acute bronchitis. PCT is only 0.05 and may de-escalate to PO doxycycline. Complete 5 days total of Tamiflu.
[2018-09-15 20:33] LABS: SOURCE SERUM
== END 2018-09-13 15:05 | disposition home or self-care (01) ==
LOC: ED 00:27 → ERH 03:54 → 5RSO 05:30 → 5RNO 05:45
PROVIDERS: ADMIT Internal Medicine; ATTEND Internal Medicine
DX: J20.9 Acute bronchitis, unspecified (principal); E11.42 Type 2 diabetes mellitus with diabetic polyneuropathy; I25.10 Atherosclerotic heart disease of native coronary artery without angina pectoris; I50.9 Heart failure, unspecified; I11.0 Hypertensive heart disease with heart failure; I48.0 Paroxysmal atrial fibrillation; B34.9 Viral infection, unspecified; F03.90 Unspecified dementia, unspecified severity, without behavioral disturbance, psychotic disturbance, mood disturbance, and anxiety; E78.00 Pure hypercholesterolemia, unspecified; Z95.1 Presence of aortocoronary bypass graft; Z79.01 Long term (current) use of anticoagulants; Z79.84 Long term (current) use of oral hypoglycemic drugs
CPT/HCPCS: 71045; 71250; 74176; 80053; 82550; 82948; 83615; 83880; 84145; 84484; 85027; 85610; 85730; 86403; 86481; 86738; 87040; 87389; 87804; 93005; 94640; 94760; 99284; G0378; J0456; J0696; J1650